=== PATIENT | female | born 1950 | race Caucasian/White ===

== ENCOUNTER 2018-02-10 10:02 | Emergency (ER) | payer MEDICARE, OTHER ==
[2018-02-10] MEDS: LIDOCAINE 2% 5ML JELLY UROJET TOP (11:15)
== END 2018-02-10 12:21 | disposition home or self-care (01) ==
LOC: M ED 10:02
DX: K56.41 Fecal impaction (principal); E07.9 Disorder of thyroid, unspecified; Z98.890 Other specified postprocedural states
CPT/HCPCS: 99284

== ENCOUNTER → 2018-04-22 | Outpatient (REF) | payer MEDICARE, OTHER ==
[2018-04-22 21:43] LABS: INFLUENZA A AMPLIFICATION NEGATIVE (NEGATIVE); INFLUENZA B AMPLIFICATION NEGATIVE (NEGATIVE)
== END ==
LOC: M LAB REF 16:10
DX: R50.9 Fever, unspecified (principal)
CPT/HCPCS: 87502

== ENCOUNTER → 2019-06-28 | Outpatient (CLI) | payer MEDICARE, OTHER ==
[~2019-06-28] MED LIST: LEVO125T4 PO; METHACHOLINE KIT (J7674) INH ONE
--- NOTE | 2019-06-28 09:32 | PFTRPT ---
Height: 65.00 Inches Weight: 126.00 Lbs BSA: 1.63 Diagnosis: R05 DATE OF PROCEDURE: 06/28/2019 ORDERED BY: Dr. Ceron INTERPRETATION: Study of excellent technical quality. Under protocol, methacholine was administered. At a dose of 2.5 mg (13.875 CDUs), a 24% decline in the FEV1 was noted. PC of 1.11 is significant. Flow rates did return to baseline post bronchodilator administration. IMPRESSION: Positive methacholine challenge study. MTDD
== END ==
LOC: M CARPUL 08:51
PROVIDERS: ATTEND Internal Medicine Pulmonary Disease
DX: R05 Cough (principal)
CPT/HCPCS: 94070; 95070; J7674

== ENCOUNTER → 2019-12-02 | Outpatient (CLI) | payer MEDICARE, OTHER ==
[~2019-12-02] MED LIST changes: -METHACHOLINE KIT (J7674) INH ONE
--- NOTE | 2019-12-03 07:24 | REP ---
REASON: Followup. COMPARISON: 05/26/2019 Once again, there are borderline-sized mediastinal lymph nodes. They have a stable appearance. No gross hilar adenopathy has developed. There are no pleural or pericardial effusions. There is no significant change in the appearance of the imaged upper abdomen or imaged osseous structures. There are incidental left renal parapelvic cysts, status quo. Evaluation of the lung caputo shows biapical pleuroparenchymal scarring status quo. The 5 mm sized right middle nodule is stable. There is bronchiectasis with peribronchiolar thickening, and again seen particularly in the left lower lobe and lingula status quo. Lingular air bronchograms are unchanged. There is cylindrical bronchiectasis seen throughout the lung caputo, status quo. No new abnormal nodules, masses, or opacities have developed. IMPRESSION: 1. Stable CT findings as described above. Lung RADS category 2. 2. Consider continued surveillance for the mediastinal lymph nodes if clinically relevant. Electronically Signed by Kirk Nettles DO 12/12/2019 07:43 A
== END ==
LOC: M RAD 14:37
PROVIDERS: ATTEND Internal Medicine Pulmonary Disease
DX: R91.1 Solitary pulmonary nodule (principal); J47.9 Bronchiectasis, uncomplicated

== ENCOUNTER 2020-01-07 10:55 | Emergency (ER) | payer MEDICARE, OTHER | END 2020-01-07 11:30 | disposition home or self-care (01) | LOC: M ED 10:55 | DX: K59.00 Constipation, unspecified (principal); E03.9 Hypothyroidism, unspecified; J45.909 Unspecified asthma, uncomplicated; Z79.899 Other long term (current) drug therapy ==

== ENCOUNTER → 2020-04-04 | Outpatient (CLI) | payer MEDICARE, OTHER | LOC: M LABSMTC 14:08 | PROVIDERS: ATTEND Family Medicine | DX: Z20.828 Contact with and (suspected) exposure to other viral communicable diseases (principal) | CPT/HCPCS: C9803; U0003 ==

== ENCOUNTER → 2020-06-11 | Outpatient (CLI) | payer MEDICARE, OTHER ==
--- NOTE | 2020-06-11 14:10 | REP ---
INDICATION: SOLITARY PULMONARY NODULE COMPARISON: 12/02/2019 TECHNIQUE: Axial noncontrast images from the thoracic inlet to the upper abdomen with coronal and sagittal reformations. This CT examination was performed using the following dose reduction techniques: Automated exposure control, adjustment of mA and/or kv according to the patient's size, and use of iterative reconstruction technique. FINDINGS: 5 mm subpleural nodule along the anterior right middle lobe (image 58) and stable borderline mediastinal adenopathy remain unchanged. No new suspicious nodule or mass lesion is appreciated. Stable chronic biapical scarring, scattered cylindrical bronchiectasis and chronic changes in the lingula with small focal area of chronic collapse with air bronchograms remain unchanged. Subtle new area of reticulonodular changes in the basilar right middle lobe are identified and nonspecific. No effusion. No pneumothorax. Mediastinum demonstrates stable atherosclerotic changes to the thoracic aorta and coronary arteries without cardiomegaly or pericardial effusion. Surrounding musculoskeletal structures are intact. IMPRESSION: 1. Stable 5 mm nodule in the subpleural anterior right middle lobe and stable borderline mediastinal lymph nodes unchanged. Stable chronic changes are also identified as described above. 2. Very subtle small area of reticulonodular changes in the basilar right middle lobe represent a new finding, but are nonspecific and may represent transient process. Consider continued follow-up at 6-9 months to confirm stability. <Electronically signed by Dimas Cowart > 06/11/20 [id number]
== END ==
LOC: M RAD 13:20
PROVIDERS: ATTEND Internal Medicine Pulmonary Disease
DX: R91.8 Other nonspecific abnormal finding of lung field (principal)

== ENCOUNTER → 2021-04-04 | Outpatient (REF) | payer MEDICARE, OTHER ==
[2021-04-04 17:46] LABS: APPEARANCE, URINE CLEAR (CLEAR); BACTERIA, URINE AUTO NEGATIVE (NEGATIVE); BILIRUBIN, URINE AUTO NEGATIVE (NEGATIVE); BLOOD, URINE BLOOD NEGATIVE (NEGATIVE); COLOR, URINE STRAW (YELLOW); GLUCOSE, URINE (UA) AUTO NEGATIVE (NEGATIVE); KETONE, URINE AUTO NEGATIVE (NEGATIVE); LEUKOCYTE ESTERASE, URINE AUTO NEGATIVE (NEGATIVE); NITRITE, URINE AUTO NEGATIVE (NEGATIVE); PROTEIN, URINE AUTO NEGATIVE (NEGATIVE); RBC, URINE AUTO 0 /HPF (0-3); SPECIFIC GRAVITY URINE AUTO 1.008 (1.002-1.035); SQUAMOUS EPITHELIAL CELL UR AU 0 /HPF (0-6); UROBILINOGEN, URINE AUTO 0.2 mg/dL (0.0-2.0); WBC, URINE AUTO 1 /HPF (0-3)
== END ==
LOC: M LAB REF 16:58
PROVIDERS: ATTEND Internal Medicine
DX: Z01.818 Encounter for other preprocedural examination (principal)

== ENCOUNTER → 2021-04-26 | Emergency (ER) | payer MEDICARE, OTHER ==
[~2021-04-26] VITALS: Ht 165.1 cm; Wt 51.8 kg
--- OUTSIDE RECORDS SUMMARY | 2021-04-26 13:22 | CCD | Continuity of Care Document ---
Author Author Varsha DANIELLE MD Organization Unknown Address [address] [place] [address] Phone [phone] Care Team Providers Care Imaging Technician Name Role Phone Zahra Polk A.N.P. AUTM [phone] Problems Description No Information Available Social History Type Date Description Comments Sex Female Tobacco Use Start: Unknown End: Unknown Former Cigarette Smo ker smoked about 1/2 pack for 20 years Smoking Status Reviewed: 02/06/21 Former Cigarette Smoker smoke d about 1/2 pack for 20 years ETOH Use Social Alcohol Use Allergies, Adverse Reactions, Alerts Description No Known Drug Allergies Medications Active Medications SIG Qnty Indications Ordering Provide r Date Colace 100mg Capsules 1 by mouth twice a day 180caps Zahra Polk, A.N.P. 02/16/2018 Synthroid 75mcg Tablets 1 by mouth every day 90tabs Zahra Polk, A.N.P. 03/27/2017 Restasis 0.05% Emulsion 1 drop both eyes twice a day Unknown Advair HFA 115-21mcg/Act Aerosol Inhale Two Puffs By Mouth Twice A Day Unknown 0 Latanoprost 0.005% Solution Instill One Drop Into Both Eyes AT Bedtime as Directed Unkno wn Immunizations Description No Information Available Vital Signs Date Vital Result Comment 02/06/2021 11:08am Height 65 inches 5'5" Weight 118.00 lb Weight 53.525 kg BMI (Body Mass Index) 19.6 kg/m2 BP Systolic 149 mmHg BP Diastolic 60 mmHg Heart Rate 59 /min 07/28/2019 1:02pm Height 65 inches 5'5" Weight 126.00 lb Weight 57.154 kg BMI (Body Mass Index) 21.0 kg/m2 BP Systolic 178 mmHg BP Diastolic 78 mmHg Heart Rate 65 /min Post Void Residual ml 113 Bladder Scanner, I ndication:Incontinence Results Test Acquired Date Facility Test Result H/L Range Note 230 Ua Routine 02/06/2021 [facility] REF TO ADDRESS ON ORDER FOR (315)- - Ua Glucose Negative Ua Protein Negative Ua Nitrite Negative Ua Leuko Small Ua Blood Negative Ua Color Not Entered Ua Ketones Negative Ua Clarity Not Entered Ua Specific Virgie 1.015 1.003-1.030 Ua PH 7.0 5.0-7.5 Ua Bilirubin Negative Ua Urobilinogen 0.2 E.U./dL 0.0-1.0 Procedures Date Code Description Status 02/06/2021 44119 Office/Outpatient Established Mo d MDM 30-39 Min Completed 07/28/2019 [id number] Colonoscopy Completed 07/2015 [id number] Colonoscopy Completed Medical Devices Description No Information Available Encounters Type Date Location Provider Dx Diagnosis Office Visit 02/06/2021 11:15a 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 We reviewed the risks of surgery. She is quite concerned about an inadvertent injury. I explained that this is fairly rare. She is generally anxious about the procedure and potential complications. We discussed blood clots, intraoperative injuries, anesthesia complications, all of which are exceedingly rare particularly in slim and healthy patients. We discussed the use of mesh. We discussed postoperative recovery. I reassured her that this is a quality of life issue and that she should pursue the surgery if her prolapse is bothersome enough that she wishes to go ahead. She is also interested in potentially going ahead with physical therapy. I let her know that I am happy to offer her whatever treatment she decides on. If and when she decides on surgery we will get this scheduled for her. * All * Follow up:* prn- will call to let me know if she'd like surgery or peferral to PFPT Functional Status Functional Condition Comment Date Status Negative for Bipap 07/28/2019 Inactive Negative for C-Pap 07/28/2019 Inactive Negative for Oxygen Therapy 07/28/2019 Inac tive Mental Status Description No Information Available Referrals Description No Information Available
--- OUTSIDE RECORDS SUMMARY | 2021-04-26 13:22 | CCD | Continuity of Care Document ---
Author Author Varsha SOLOMON DO Organization Unknown Address [address] [facility] [address] [place] [address] Phone [phone] Care Team Providers Care Skin Fitter Name Role Phone Zahra Polk AUTM [phone] Natividad Mistry OD AUTM Unavailable Dereck Ceron MD AUTM [phone] Brad Danielle MD AUTM [phone] Problems Description No Information Available Social History Type Date Description Comments Sex Unknown Tobacco Use Start: Unknown End: Unknown Quit Tobacco Use Start: Unknown End: Unknown Patient is a former smoker Exercise Type/Frequency Exercises sporadically Seat Belt/Car Seat always uses seat belt Allergies and adverse reactions Description No Known Drug Allergies Medications Active Medications SIG Qnty Indications Ordering Provide r Date Prednisone 10mg Tablets 3 daily for 3 days then 2 daily for 3 days then 1 daily for 3 days and stop. 15tabs ALEX Figueroa JR 02/18/2021 Colace 100mg Capsules 1 by mouth twice a day 180caps CELINE Wu 02/16/2018 Synthroid 75mcg Tablets 1 by mouth every day 90tabs CELINE Wu 03/27/2017 Calcium 500 +D [id number] Tablets bid CELINE Wu 01/13/2011 Restasis 0.05% Emulsion 1 drop both eyes twice a day Unknown Advair HFA 115-21mcg/Act Aerosol inhale two puffs by mouth twice a day Unknown 0 Proair HFA 108(90Base) mcg/Act Aer osol 2 puffs four times a day as needed Unknown Latanoprost 0.005% Solution 1 drop both eyes every night at bedtime Unknown 00/0 Fish Oil 1000mg Capsules 1 by mouth every day Unknown Medications Administered in Office Medication SIG Qnty Indications Ordering Provider Date Covid-19 vaccine, Unspecified Inj ection Unknown 07/12/2020 Covid-19 vaccine, Unspecified Inj ection Unknown 06/21/2020 Administration Of Flu Vaccine Inj ection Zahra Polk, CELINE 03/24/2019 Immunization Adminstration,1 Vaccine/Tox oid Injection Zahra Polk, CELINE 019 Immunization Each Add'l Vacc/To Injection Zahra Polk, CELINE 016 Immunizations CPT Code Status Date Vaccine Lot # U-Flu Given 03/14/2020 Influenza,Unspecified 22402 Given 03/24/2019 Influenza Vaccin e Quadrivalent Preser/Antibiotic Free Im Use [id number] U-PneuC Given 01/26/2019 Prevnar 13 20575 Given 11/17/2018 Adacel- Tetanus Diphtheria P ertussis 54158 Given 03/25/2017 Influenza Vaccin e Quadrivalent Preser/Antibiotic Free Im Use Q2037 Given 03/21/2016 Fluvirin Virus Vaccine 71047 01 05730 Given 03/21/2016 Pneumovax 23 [id number] Q2037 Given 04/05/2015 Fluvirin Virus Vaccine 78912 01 06850 Given 02/21/2015 Zoster Vaccine Vital Signs Date Vital Result Comment 04/04/2021 10:06am BP Systolic 122 mmHg BP Diastolic 68 mmHg Heart Rate 69 /min Height 55 inches 4'7" Weight 114.00 lb O2 % BldC Oximetry 99 % BMI (Body Mass Index) 26.5 kg/m2 02/18/2021 3:16pm BP Systolic 122 mmHg BP Diastolic 70 mmHg Heart Rate 58 /min Height 55 inches 4'7" Weight 116.00 lb BMI (Body Mass Index) 27.0 kg/m2 Results Test Acquired Date Facility Test Result H/L Range Note Ua Routine 04/04/2021 [facility] [address] [place] [address] [phone] Appearance, Urine CLEAR Normal Clear Color, Urine STRAW Normal Yellow PH,Urine 6.0 units Normal 5.0-9.0 Specific Novelty Urine Auto 1.008 Normal 1.002-1.035 Protein, Urine Auto NEGATIVE mg/dL Normal Negative Glucose, Urine (Ua) Auto NEGATIVE mg/dL Normal Negative Ketone, Urine Auto NEGATIVE mg/dL Normal Negative Urobilinogen, Urine Auto 0.2 mg/dL Normal 0.0-2.0 Bilirubin, Urine Auto NEGATIVE Normal Negative Nitrite, Urine Auto NEGATIVE Normal Negative Leukocyte Esterase, Urine Auto NEGATIVE Normal Negative Blood, Urine Blood NEGATIVE Normal Negative WBC, Urine Auto 1 /HPF Normal 0-3 RBC, Urine Auto 0 /HPF Normal 0-3 Bacteria, Urine Auto NEGATIVE Normal Negative Squamous Epithelial Cell Ur AU 0 /HPF Normal 0-6 Hyaline Cast, Urine Auto 0 /LPF Normal 0-1 Laboratory test finding 04/04/2021 [facility] [address] [place], [place] [id number] [phone] Urine Culture FULL REPORT IN L <SEE NOTE> Normal 1 Complete Blood Count 04/04/2021 [facility] [employer] [facility] [employer] Road Mixer Operator: [place] [address] [phone] WBC 6.6 x10*3/UL 4.1 - 10.9 RBC 3.88 x10*6/UL Low 4.20 - 6.30 Hemoglobin 12.6 g/dL 12.0 - 18.0 Hematocrit 36.5 % Low 37.0 - 51.0 MCV 94.2 fL 80.0 - 97.0 MCH 32.5 pg High 26.0 - 32.0 MCHC 34.5 g/dL 31.0 - 38.0 RDW 12.5 % 11.6 - 13.7 PLT 296 x10*3/UL 140 - 440 MPV 9.1 FL 7.8 - 11.0 Lymph % 22.6 % 10.0 - 58.5 Mid % 6.3 % 1.7 - 9.3 Neut % 71.1 % 37.0 - 92.0 Lymph # 1.5 x10*3/UL 0.6 - 4.1 Mid # 0.4 x10*3/UL 0.1 - 0.6 Neut # 4.7 x10*3/UL 2.0 - 7.8 Comprehensive Chem Profile 04/04/2021 [facility] [address] Mixer Operator: Dr Law [place], [place] [id number] [phone] Glucose 67 mg/dL Low 74 - 99 2 BUN 17 mg/dL 7 - 18 Creatinine 0.6 mg/dL 0.6 - 1.3 Sodium 141 mEq/L 136 - 145 Potassium 4.4 mEq/L 3.5 - 5.1 Chloride 104 mEq/L 98 - 107 Carbon Dioxide 31 mEq/L 21 - 32 Calcium 10.0 mg/dL 8.5 - 10.1 Alk. Phosphatase 49 mg/dL 46 - 116 Total Bilirubin 0.4 mg/dL 0.2 - 1.0 Ast (Sgot) 17 U/L 15 - 37 Alt (SGPT) 34 U/L 12 - 78 Albumin 3.7 g/dL 3.4 - 5.0 Total Protein 7.2 g/dL 6.4 - 8.2 A/G Ratio 1.06 CALC 1.00 - 1.90 GFR >= 60 mL/min >60 GFR >= 60 mL/min >60 3 Complete Blood Count 11/26/2020 [facility] s, pc Road Mixer Operator: Dr [address] [place], [place] [id number] [phone] WBC 6.0 x10*3/UL 4.1 - 10.9 RBC 4.00 x10*6/UL Low 4.20 - 6.30 Hemoglobin 13.0 g/dL 12.0 - 18.0 Hematocrit 38.5 % 37.0 - 51.0 MCV 96.1 fL 80.0 - 97.0 MCH 32.5 pg High 26.0 - 32.0 MCHC 33.8 g/dL 31.0 - 38.0 RDW 12.6 % 11.6 - 13.7 PLT 258 x10*3/UL 140 - 440 MPV 9.6 FL 7.8 - 11.0 Lymph % 23.4 % 10.0 - 58.5 Mid % 6.8 % 1.7 - 9.3 Neut % 69.8 % 37.0 - 92.0 Lymph # 1.4 x10*3/UL 0.6 - 4.1 Mid # 0.4 x10*3/UL 0.1 - 0.6 Neut # 4.2 x10*3/UL 2.0 - 7.8 Comprehensive Chem Profile 11/26/2020 [facility], Road Mixer Operator: [place] [address] [phone] Glucose 96 mg/dL 74 - 99 4 BUN 13 mg/dL 7 - 18 Creatinine 0.7 mg/dL 0.6 - 1.3 Sodium 140 mEq/L 136 - 145 Potassium 4.1 mEq/L 3.5 - 5.1 Chloride 103 mEq/L 98 - 107 Carbon Dioxide 30 mEq/L 21 - 32 Calcium 9.4 mg/dL 8.5 - 10.1 Alk. Phosphatase 51 mg/dL 46 - 116 Total Bilirubin 0.8 mg/dL 0.2 - 1.0 Ast (Sgot) 24 U/L 15 - 37 Alt (SGPT) 38 U/L 12 - 78 Albumin 4.0 g/dL 3.4 - 5.0 Total Protein 7.3 g/dL 6.4 - 8.2 A/G Ratio 1.21 CALC 1.00 - 1.90 GFR >= 60 mL/min >60 GFR >= 60 mL/min >60 5 Lipid Profile 11/26/2020 [facility] , Road Mixer Operator: Dr Thanh [place] [id number] [phone] Cholesterol 227 mg/dL High 131 - 200 Triglycerides 52 mg/dL 30 - 150 HDL Cholesterol 121 mg/dL High 35 - 60 LDL (Calculated) 96 CALC 50 - 159 Laboratory test finding 11/26/2020 [facility] [employer], Road Mixer Operator: [place] [address] [phone] Thyroid Stimulating Hormone 0.52 uIU/mL 0.3 6 - 3.74 1 FULL REPORT IN LAB NOTES (eC W and Medent). NO GROWTH 2 100-125 mg/dL PRE-DIABET ES/FASTING >126 mg/dL DIABETES/FASTING 3 CHRONIC KIDNEY DISEASE STAGI NG PER NKF STAGE I & II GFR >= 60 NORMAL TO MILDLY DECREASED STAGE III GFR 30-59 MODERATELY DECREASED STAGE IV GFR 15-29 SEVERELY DECREASED STAGE V GFR <15 VERY LITTLE GFR LEFT ESRD GFR <15 ON ASSESSMENT DIRECTOR 4 100-125 mg/dL PRE-DIABET ES/FASTING >126 mg/dL DIABETES/FASTING 5 CHRONIC KIDNEY DISEASE STAGI NG PER NKF STAGE I & II GFR >= 60 NORMAL TO MILDLY DECREASED STAGE III GFR 30-59 MODERATELY DECREASED STAGE IV GFR 15-29 SEVERELY DECREASED STAGE V GFR <15 VERY LITTLE GFR LEFT ESRD GFR <15 ON ASSESSMENT DIRECTOR Procedures Date Code Description Status 02/18/2021 07589 Office/Outpatient Established SF MDM 10-19 Min Completed 11/26/2020 26442 Office/Outpatient Established Mo d MDM 30-39 Min Completed 05/29/2020 [id number] Mammogram Completed 05/04/2019 [id number] Mammogram Completed 05/03/2018 [id number] Bone Mineral Density Test Comple claudio 05/03/2018 [id number] Mammogram Completed 04/13/2017 [id number] Mammogram Completed 04/10/2016 [id number] Mammogram Completed 07/09/2015 [id number] Colonoscopy Completed 03/07/2015 [id number] Mammogram Completed 03/03/2014 [id number] Mammogram Completed 02/28/2013 [id number] Mammogram Completed 03/04/2012 [id number] Mammogram Completed 02/27/2012 [id number] Mammogram Completed 02/25/2011 [id number] Mammogram Completed 02/25/2011 [id number] Bone Mineral Density Test Comple claudio 02/18/2010 [id number] Mammogram Completed 02/16/2009 [id number] Mammogram Completed 01/12/2006 [id number] Bone Mineral Density Test Comple claudio 08/2004 [id number] Colonoscopy Completed Medical Devices Description No Information Available Encounters Type Date Location Provider Dx Diagnosis Office Visit 02/18/2021 3:20p [facility] R21 Rash and other nonspecific s kin eruption Office Visit 11/26/2020 10:20a [facility] Pol[facility], CELINE E03.9 Hypothyroidism, unspecified I10 Essential (primary) hyperten darin E78.00 Pure hypercholesterolemia, u nspecified Z13.89 Encounter for screening for other disorder Assessments Date Code Description Provider 04/04/2021 Z01.810 Encounter for preprocedural card iovascular examination Boni Solomon, 04/04/2021 N81.4 Uterovaginal prolapse, unspecifi ed Boni Solomon, 04/04/2021 E03.9 Hypothyroidism, unspecified Chri bebe Solomon DO 04/04/2021 J45.30 Mild persistent asthma, uncompli cated Boni Solomon, DO 02/18/2021 R21 Rash and other nonspecific skin eruption Brendan Yeboah JR PA 11/26/2020 E03.9 Hypothyroidism, unspecified CELINE Jacques 11/26/2020 I10 Essential (primary) hypertension CELINE Wu 11/26/2020 E78.00 Pure hypercholesterolemia, unspe cified CELINE Wu 11/26/2020 Z13.89 Encounter for screening for othe r disorder CELINE Wu Plan of Treatment Future Appointment(s):* 05/28/2021 10:00 am - CELINE Wu at [facility] 04/04/2021 - Boni Solomon, * Z01.810 Encounter for preprocedural cardiovascular examination * N81.4 Uterovaginal prolapse, unspecified * E03.9 Hypothyroidism, unspecified* Comments:* Well controlled on current levoTH dose. * J45.30 Mild persistent asthma, uncomplicated* Comments:* Well controlled with current inhaler regimen with very infrequent rescue inhaler use. Functional Status Description No Information Available Mental Status Description No Information Available Referrals Description No Information Available
--- OUTSIDE RECORDS SUMMARY | 2021-04-26 13:22 | CCD | Continuity of Care Document ---
Author Author Varsha YEBOAH Organization Unknown Address [address] [facility] [address] [place] [address] Phone [phone] Care Team Providers Care Winch Runner Name Role Phone Zahra Polk AUTM [phone] Natividad Mistry OD AUTM Unavailable Dereck Ceron MD AUTM [phone] Brad Danielle MD AUTM [phone] Problems Description No Information Available Social History Type Date Description Comments Sex Unknown Tobacco Use Start: Unknown End: Unknown Quit Tobacco Use Start: Unknown End: Unknown Patient is a former smoker Exercise Type/Frequency Exercises sporadically Seat Belt/Car Seat always uses seat belt Allergies, Adverse Reactions, Alerts Description No Known [...] 90tabs CELINE Wu 03/27/2017 Calcium 500 +D [id number] Tablets bid CELINE Wu 01/13/2011 Restasis 0.05% [...] CELINE 019 Immunization Each Add'l Vacc/To Injection CELINE Wu 016 Immunizations CPT Code Status Date Vaccine Lot # U-Flu Given 03/14/2020 Influenza,Unspecified 19119 Given 03/24/2019 Influenza Vaccin e Quadrivalent Preser/Antibiotic Free Im Use [id number] U-PneuC Given 01/26/2019 Prevnar 13 00214 Given 11/17/2018 Adacel- Tetanus Diphtheria P ertussis 12605 Given 03/25/2017 Influenza Vaccin e Quadrivalent Preser/Antibiotic Free Im Use Q2037 Given 03/21/2016 Fluvirin Virus Vaccine 07854 01 11736 Given 03/21/2016 Pneumovax 23 [id number] Q2037 Given 04/05/2015 Fluvirin Virus Vaccine 78061 01 81509 Given 02/21/2015 Zoster Vaccine Vital Signs Date Vital Result Comment 02/18/2021 3:16pm BP Systolic 122 mmHg BP Diastolic 70 mmHg Heart Rate 58 /min Height 55 inches 4'7" Weight 116.00 lb BMI (Body Mass Index) 27.0 kg/m2 11/26/2020 10:04am BP Systolic 120 mmHg BP Diastolic 50 mmHg Heart Rate 58 /min Height 55 inches 4'7" Weight 117.25 lb O2 % BldC Oximetry 98 % RM Air BMI (Body Mass Index) 27.2 kg/m2 Results Test Acquired Date Facility Test Result H/L Range Note Complete Blood Count 11/26/2020 [facility] [employer] [facility] alexia jarrell Production Line Welder: Dr Thanh Patterson [place], [place] [address] [phone] WBC 6.0 x10*3/UL 4.1 - 10.9 RBC [...] 2.0 - 7.8 Comprehensive Chem Profile 11/26/2020 [facility], Production Line Welder: [place] [address] [phone] Glucose 96 mg/dL 74 - 99 1 BUN 13 mg/dL 7 - 18 Creatinine [...] mL/min >60 GFR >= 60 mL/min >60 2 Lipid Profile 11/26/2020 [facility] , Production Line Welder: [place] [address] [phone] Cholesterol 227 mg/dL High 131 - 200 Triglycerides 52 mg/dL 30 - 150 HDL Cholesterol 121 mg/dL High 35 - 60 LDL (Calculated) 96 CALC 50 - 159 Laboratory test finding 11/26/2020 [facility] [employer] Line Welder: [place] [address] [phone] Thyroid Stimulating Hormone 0.52 uIU/mL 0.3 6 - 3.74 1 100-125 mg/dL PRE-DIABET ES/FASTING >126 mg/dL DIABETES/FASTING 2 CHRONIC KIDNEY DISEASE STAGI NG PER NKF STAGE I & II GFR >= 60 NORMAL TO MILDLY DECREASED STAGE III GFR 30-59 MODERATELY DECREASED STAGE IV GFR 15-29 SEVERELY DECREASED STAGE V GFR <15 VERY LITTLE GFR LEFT ESRD GFR <15 ON HEALTH INFORMATION SYSTEMS TECHNICIAN Procedures Date Code Description Status 02/18/2021 58182 Office/Outpatient Established SF MDM 10-19 Min Completed 11/26/2020 07739 Office/Outpatient Established Mo d MDM 30-39 Min Completed 05/29/2020 [id number] Mammogram Completed 05/04/2019 [id number] Mammogram Completed 05/03/2018 [id number] Bone Mineral Density Test Comple claudio 05/03/2018 [id number] Mammogram Completed 04/13/2017 [id number] Mammogram Completed 04/10/2016 [id number] Mammogram Completed 07/09/2015 [id number] Colonoscopy Completed 03/07/2015 [id number] Mammogram Completed 03/03/2014 [id number] Mammogram Completed 02/28/2013 [id number] Mammogram Completed 03/04/2012 [id number] Mammogram Completed 02/27/2012 [id number] Mammogram Completed 02/25/2011 [id number] Mammogram Completed 02/25/2011 [id number] Bone Mineral Density Test Comple claudio 02/18/2010 [id number] Mammogram Completed 02/16/2009 [id number] Mammogram Completed 01/12/2006 [id number] Bone Mineral Density Test Comple claudio 08/2004 [id number] Colonoscopy Completed Medical Devices Description No Information Available Encounters Type Date Location Provider Dx Diagnosis Office Visit 02/18/2021 3:[facility]p [facility] R21 Rash and other nonspecific s kin eruption Office Visit 11/26/2020 10:20a [facility] CELINE Wu E03.9 Hypothyroidism, unspecified I10 Essential (primary) hyperten darin E78.00 Pure hypercholesterolemia, u nspecified Z13.89 Encounter for screening for other disorder Assessments Date Code Description Provider 02/18/2021 R21 Rash and other nonspecific skin eruption ALEX Figueroa JR 11/26/2020 E03.9 Hypothyroidism, unspecified CELINE Jacques 11/26/2020 I10 Essential (primary) hypertension CELINE Wu 11/26/2020 E78.00 Pure hypercholesterolemia, unspe cified CELINE Wu 11/26/2020 Z13.89 Encounter for screening for othe r disorder CELINE Wu Plan of Treatment Future Appointment(s):* 05/28/2021 10:00 am - CELINE Wu at [facility] 02/18/2021 - ALEX Figueroa JR* R21 Rash and other nonspecific skin eruption * All * New Medication:* Prednisone 10 mg - 3 daily for 3 days then 2 daily for 3 days then 1 daily for 3 days and stop. Functional Status Description No Information Available Mental Status Description No Information Available Referrals Description No Information Available
--- OUTSIDE RECORDS SUMMARY | 2021-04-26 13:22 | CCD | Continuity of Care Document ---
Author Author Varsha SOLOMON DO Organization Unknown Address [address] [facility] [address] [place] [address] Phone [phone] Care Team Providers Care Cellar Pumper Name Role Phone Zahra Polk AUTM [phone] Natividad Mistry OD AUTM Unavailable Dereck Ceron MD AUTM [phone] Brad Danielle MD AUTM [phone] Problems Description No Information Available Social History [...] 90tabs CELINE Wu 03/27/2017 Calcium 500 +D [id number] Tablets bid CELINE Wu 01/13/2011 Restasis 0.05% [...] Vaccine Lot # U-Flu Given 03/14/2020 Influenza,Unspecified 11584 Given 03/24/2019 Influenza Vaccin e Quadrivalent Preser/Antibiotic Free Im Use [id number] U-PneuC Given 01/26/2019 Prevnar 13 03514 Given 11/17/2018 Adacel- Tetanus Diphtheria P ertussis 59094 Given 03/25/2017 Influenza Vaccin e Quadrivalent Preser/Antibiotic Free Im Use [id number] Given 03/21/2016 Fluvirin Virus Vaccine 72280 01 76563 Given 03/21/2016 Pneumovax 23 [id number] Q2037 Given 04/05/2015 Fluvirin Virus Vaccine 54989 01 90032 Given 02/21/2015 Zoster Vaccine Vital Signs Date [...] Result H/L Range Note Ua Routine 04/04/2021 [facility] nter [address] [place] [address] [phone] Appearance, Urine CLEAR Normal Clear Color, Urine STRAW Normal Yellow PH,Urine 6.0 units Normal 5.0-9.0 Specific [place] Urine Auto 1.008 Normal 1.002-1.035 Protein, Urine [...] /LPF Normal 0-1 Laboratory test finding 04/04/2021 [facility] [address] [place], [place] [id number] [phone] Urine Culture FULL REPORT IN L <SEE NOTE> Normal 1 Complete Blood Count 04/04/2021 [facility] Sports Commentator: [place] [address] [phone] WBC 6.6 x10*3/UL 4.1 - 10.9 RBC [...] 2.0 - 7.8 Comprehensive Chem Profile 04/04/2021 [facility] Sports Commentator: Dr Law [place], [place] [id number] [phone] Glucose 67 mg/dL Low 74 - 99 [...] mL/min >60 3 Complete Blood Count 11/26/2020 [facility] Sports Commentator: Dr Law [place], [place] [id number] [phone] WBC 6.0 x10*3/UL 4.1 - 10.9 RBC [...] 2.0 - 7.8 Comprehensive Chem Profile 11/26/2020 [facility], Sports Commentator: [place] [address] [phone] Glucose 96 mg/dL 74 - 99 4 [...] 60 mL/min >60 5 Lipid Profile 11/26/2020 [facility] , Sports Commentator: Dr Thanh Solomon [place] [address] [phone] Cholesterol 227 mg/dL High 131 - 200 Triglycerides 52 mg/dL 30 - 150 HDL Cholesterol 121 mg/dL High 35 - 60 LDL (Calculated) 96 CALC 50 - 159 Laboratory test finding 11/26/2020 [facility], Sports Commentator: Dr [place]h [place] [address] [phone] Thyroid Stimulating Hormone 0.52 uIU/mL 0.3 6 [...] LITTLE GFR LEFT ESRD GFR <15 ON RELIGIOUS ASSISTANT 4 100-125 mg/dL PRE-DIABET ES/FASTING >126 mg/dL DIABETES/FASTING 5 CHRONIC KIDNEY DISEASE STAGI NG PER NKF STAGE I & II GFR >= 60 NORMAL TO MILDLY DECREASED STAGE III GFR 30-59 MODERATELY DECREASED STAGE IV GFR 15-29 SEVERELY DECREASED STAGE V GFR <15 VERY LITTLE GFR LEFT ESRD GFR <15 ON RELIGIOUS ASSISTANT Procedures Date Code Description Status 02/18/2021 46351 Office/Outpatient Established SF MDM 10-19 Min Completed 11/26/2020 49790 Office/Outpatient Established Mo d MDM 30-39 Min Completed 05/29/2020 [id number] Mammogram Completed 05/04/2019 [id number] Mammogram Completed 05/03/2018 [id number] Bone Mineral Density Test Comple claudio 05/03/2018 [id number] Mammogram Completed 04/13/2017 [id number] Mammogram Completed 04/10/2016 [id number] Mammogram Completed 07/09/2015 [id number] Colonoscopy Completed 03/07/2015 [id number] Mammogram Completed 03/03/2014 [id number] Mammogram Completed 02/28/2013 [id number] Mammogram Completed 03/04/2012 [id number] Mammogram Completed 02/27/2012 [id number] Mammogram Completed 02/25/2011 [id number] Mammogram Completed 02/25/2011 [id number] Bone Mineral Density Test Comple claudio 02/18/2010 [id number] Mammogram Completed 02/16/2009 [id number] Mammogram Completed 01/12/2006 [id number] Bone Mineral Density Test Comple claudio 08/2004 [id number] Colonoscopy Completed Medical Devices Description No Information Available Encounters Type Date Location Provider Dx Diagnosis Office Visit 02/18/2021 3[facility] R21 Rash and other nonspecific s kin eruption Office Visit 11/26/2020 10:20a [facility], CELINE E03.9 Hypothyroidism, unspecified [...] 05/28/2021 10:00 am - CELINE Wu at [facility] 04/04/2021 - Boni Solomon, * [...]
--- OUTSIDE RECORDS SUMMARY | 2021-04-26 13:22 | CCD | Continuity of Care Document ---
Author Author Covid-19 Testing, [facility] Unknown Address [address] [facility], [address] [place] [address] Phone [phone] Care Team Providers Care Manager Appointment Name Role Phone Brad Danielle M.D. AUTM [phone] No PCP AUTM Unavailable Problems Description No Information Available Social History Type Date Description Comments Sex Unknown Allergies and adverse reactions Description No Information Available Medications Description No Information Available Immunizations Description No Information Available Vital Signs Description No Information Available Results Description No Information Available Procedures Date Code Description Status 04/05/2021 54725 Office/Outpatient Established Mi nimal Problem(S) Completed Medical Devices Description No Information Available Encounters Type Date Location Provider Dx Diagnosis Office Visit 04/05/2021 11:20a [facility] Covid-19 Testing Z20.822 Contact with and (suspected) exposure to Covid-19 Assessments Date Code Description Provider 04/05/2021 Z20.822 Contact with and (suspected) exp osure to Covid-19 Dennis Vale MD 04/05/2021 Z20.822 Contact with and (suspected) exp osure to Covid-19 Covid-19 Testing Plan of Treatment No Information Available Functional Status Description No Information Available Mental Status Description No Information Available Referrals Description No Information Available
--- OUTSIDE RECORDS SUMMARY | 2021-04-26 13:22 | CCD | Continuity of Care Document ---
Author Author Varsha SOLOMON DO Organization Unknown Address [address] [facility] [address] [place] [address] Phone [phone] Care Team Providers Care All Terrain Vehicle Technician Name Role Phone Zahra Polk AUTM [phone] Natividad Mistry OD AUTM Unavailable Dereck Ceron MD AUTM [phone] Brad Danielle MD AUTM [phone] Problems Description No Information Available Social History [...] 90tabs CELINE Wu 03/27/2017 Calcium 500 +D [id number] Tablets bid CELINE Wu 01/13/2011 Restasis 0.05% [...] Vaccine Lot # U-Flu Given 03/14/2020 Influenza,Unspecified 60417 Given 03/24/2019 Influenza Vaccin e Quadrivalent Preser/Antibiotic Free Im Use [id number] U-PneuC Given 01/26/2019 Prevnar 13 54518 Given 11/17/2018 Adacel- Tetanus Diphtheria P ertussis 75716 Given 03/25/2017 Influenza Vaccin e Quadrivalent Preser/Antibiotic Free Im Use Q2037 Given 03/21/2016 Fluvirin Virus Vaccine 00913 01 09756 Given 03/21/2016 Pneumovax 23 [id number] Q2037 Given 04/05/2015 Fluvirin Virus Vaccine 56847 01 58096 Given 02/21/2015 Zoster Vaccine Vital Signs Date [...] Range Note Complete Blood Count 11/26/2020 [facility] Rural Sociologist: Dr Thanh Solomon [place] [address] [phone] WBC 6.0 x10*3/UL 4.1 - 10.9 RBC [...] 2.0 - 7.8 Comprehensive Chem Profile 11/26/2020 [facility], Rural Sociologist: [place] [address] [phone] Glucose 96 mg/dL 74 - 99 1 [...] 60 mL/min >60 2 Lipid Profile 11/26/2020 [facility] , Rural Sociologist: [place]h [place] [address] [phone] Cholesterol 227 mg/dL High 131 - 200 Triglycerides 52 mg/dL 30 - 150 HDL Cholesterol 121 mg/dL High 35 - 60 LDL (Calculated) 96 CALC 50 - 159 Laboratory test finding 11/26/2020 [facility] Rural Sociologist: [place] [address] [phone] Thyroid Stimulating Hormone 0.52 uIU/mL 0.3 6 - 3.74 1 100-125 mg/dL PRE-DIABET ES/FASTING >126 mg/dL DIABETES/FASTING 2 CHRONIC KIDNEY DISEASE STAGI NG PER NKF STAGE I & II GFR >= 60 NORMAL TO MILDLY DECREASED STAGE III GFR 30-59 MODERATELY DECREASED STAGE IV GFR 15-29 SEVERELY DECREASED STAGE V GFR <15 VERY LITTLE GFR LEFT ESRD GFR <[address] ABSTRACTOR Procedures Date Code Description Status 02/18/2021 39362 Office/Outpatient Established SF MDM 10-19 Min Completed 11/26/2020 27604 Office/Outpatient Established Mo d MDM 30-39 Min Completed 05/29/2020 [id number] Mammogram Completed 05/04/2019 [id number] Mammogram Completed 05/03/2018 [id number] Bone Mineral Density Test [facility] 05/03/2018 [id number] Mammogram Completed 04/13/2017 [id number] Mammogram Completed 04/10/2016 [id number] Mammogram Completed 07/09/2015 [id number] Colonoscopy Completed 03/07/2015 [id number] Mammogram Completed 03/03/2014 [id number] Mammogram Completed 02/28/2013 [id number] Mammogram Completed 03/04/2012 [id number] Mammogram Completed 02/27/2012 [id number] Mammogram Completed 02/25/2011 [id number] Mammogram Completed 02/25/2011 [id number] Bone Mineral Density Test Comple claudio 02/18/2010 [id number] Mammogram Completed 02/16/2009 [id number] Mammogram Completed 01/12/2006 627148864 Bone Mineral Density Test [facility] 08/2004 [id number] Colonoscopy Completed Medical Devices Description No Information Available Encounters Type Date Location Provider Dx Diagnosis Office Visit 02/18/2021 [facility] [place] R21 Rash and other nonspecific s kin eruption Office Visit 11/26/2020 10:20a [facility] J. [place], ANP E03.9 Hypothyroidism, unspecified I10 Essential (primary) hyperten darin E78.00 Pure hypercholesterolemia, u nspecified Z13.89 Encounter for screening for other disorder Assessments Date Code Description Provider 04/04/2021 Z01.810 Encounter for preprocedural card iovascular examination Boni Solomon, DO 04/04/2021 N81.4 Uterovaginal prolapse, unspecifi ed Boni Solomon, DO 04/04/2021 E03.9 Hypothyroidism, unspecified Chri bebe Solomon, DO 04/04/2021 J45.30 Mild persistent asthma, uncompli cated Boni Solomon, DO 02/18/2021 R21 Rash and other nonspecific skin eruption ALEX Figueroa JR 11/26/2020 E03.9 Hypothyroidism, unspecified Ruben Polk, CELINE 11/26/2020 I10 Essential (primary) hypertension Zahra Polk, CELINE 11/26/2020 E78.00 Pure hypercholesterolemia, unspe cified Zahra Polk, CELINE 11/26/2020 Z13.89 Encounter for screening for othe r disorder CELINE Wu Plan of Treatment Future Appointment(s):* 05/28/2021 10:00 am - CELINE Wu at [facility] 04/04/2021 - Boni Solomon, DO* Z01.810 Encounter for preprocedural cardiovascular examination * N81.4 Uterovaginal prolapse, unspecified * E03.9 Hypothyroidism, unspecified * J45.30 Mild persistent asthma, uncomplicated Functional Status Description No Information Available Mental Status Description No Information Available Referrals Description No Information Available
--- OUTSIDE RECORDS SUMMARY | 2021-04-26 13:22 | CCD | Continuity of Care Document ---
Author Author Varsha DANIELLE MD Organization Unknown Address [address] [place] [address] Phone [phone] Care Team Providers Care Gas Appliance Repairer Name Role Phone Zahra Polk A.N.P. AUTM [phone] Problems Description No Information Available Social History [...] Negative Ua Clarity Not Entered Ua Specific [place] 1.015 1.003-1.030 Ua PH 7.0 5.0-7.5 Ua Bilirubin Negative Ua Urobilinogen 0.2 E.U./dL 0.0-1.0 Procedures Date Code Description Status 02/06/2021 09340 Office/Outpatient Established Mo d MDM 30-39 Min Completed 07/28/2019 [id number] Colonoscopy Completed 07/2015 [id number] Colonoscopy Completed Medical Devices Description No Information Available Encounters Type Date Location Provider Dx Diagnosis Office Visit 02/06/2021 11:15a [facility] Brad Danielle MD N99.3 [...]
--- OUTSIDE RECORDS SUMMARY | 2021-04-26 13:22 | CCD | Continuity of Care Document ---
Author Author Varsha DANIELLE MD Organization Unknown Address [address] [place] [address] Phone [phone] Care Team Providers Care Moss Picker Name Role Phone Zahra Polk A.N.P. AUTM [phone] Problems Description No Information Available Social History [...] Negative Ua Clarity Not Entered Ua Specific [place] 1.015 1.003-1.030 Ua PH 7.0 5.0-7.5 Ua Bilirubin Negative Ua Urobilinogen 0.2 E.U./dL 0.0-1.0 Procedures Date Code Description Status 02/06/2021 64242 Office/Outpatient Established Mo d MDM 30-39 Min Completed 07/28/2019 [id number] Colonoscopy Completed 07/2015 [id number] Colonoscopy Completed Medical Devices Description No Information Available Encounters Type Date Location Provider Dx Diagnosis Office Visit 02/06/2021 11:15a [facility] Brad Danielle MD N99.3 [...]
--- OUTSIDE RECORDS SUMMARY | 2021-04-26 13:22 | CCD | Continuity of Care Document ---
Author Organization Unknown Address Unknown Phone Unavailable Care Team Providers Care Die Assembler Name Role Phone Zahra Polk A.N.P. AUTM [phone] Problems Description No Information Available Social History Type Date Description Comments Sex Female Tobacco Use Start: Unknown End: Unknown Former Cigarette Smo ker smoked about 1/2 pack for 20 years Smoking Status Reviewed: 02/06/21 Former Cigarette Smoker smoke d about 1/2 pack for 20 years ETOH Use Social Alcohol Use Allergies and adverse reactions Description No Known [...] Date Facility Test Result H/L Range Note Laboratory test finding 04/04/2021 Outside Facility (315)- - Urine Culture <pending> 230 Ua Routine 02/06/2021 [facility] Inhouse Lab REF TO DR ADDRESS ON ORDER FOR (315)- - Ua Glucose Negative Ua Protein Negative Ua Nitrite Negative Ua Leuko Small Ua Blood Negative Ua Color Not Entered Ua Ketones Negative Ua Clarity Not Entered Ua Specific [place] 1.015 1.003-1.030 Ua PH 7.0 5.0-7.5 Ua Bilirubin Negative Ua Urobilinogen 0.2 E.U./dL 0.0-1.0 Procedures Date Code Description Status 02/06/2021 88571 Office/Outpatient Established Mo d MDM 30-39 Min Completed 07/28/2019 [id number] Colonoscopy Completed 07/2015 [id number] Colonoscopy Completed Medical Devices Description No Information Available Encounters Type Date Location Provider Dx Diagnosis Office Visit 02/06/2021 11:15a [facility] Brad Danielle MD 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 Assessments Date Code Description Provider 02/06/2021 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 Valid & Billable Code Covered @ 100% with No Copay & No Deductible No Prior Authorization Required REF# [id number] 03/19/21 [facility] [address] [place] [phone]
--- OUTSIDE RECORDS SUMMARY | 2021-04-26 13:23 | CCD | Continuity of Care Document ---
Author Author Varsha DANIELLE MD Organization Unknown Address [address] [place] [address] Phone [phone] Care Team Providers Care Glassine Machine Tender Name Role Phone Zahra Polk A.N.P. AUTM [phone] Problems Description No Information Available Social History [...] Negative Ua Clarity Not Entered Ua Specific [place] 1.015 1.003-1.030 Ua PH 7.0 5.0-7.5 Ua Bilirubin Negative Ua Urobilinogen 0.2 E.U./dL 0.0-1.0 Procedures Date Code Description Status 02/06/2021 38760 Office/Outpatient Established Mo d MDM 30-39 Min Completed 07/28/2019 [id number] Colonoscopy Completed 07/2015 [id number] Colonoscopy Completed Medical Devices Description No Information Available Encounters Type Date Location Provider Dx Diagnosis Office Visit 02/06/2021 11:15a [facility] St/ [facility] Brad Danielle MD [...]
--- OUTSIDE RECORDS SUMMARY | 2021-04-26 13:23 | CCD | Continuity of Care Document ---
Author Author Varsha DANIELLE MD Organization Unknown Address [address] [place] [address] Phone [phone] Care Team Providers Care Clean Energy Policy Analyst Name Role Phone Zahra Polk A.N.P. AUTM [phone] Problems Description No Information Available Social History [...] Negative Ua Clarity Not Entered Ua Specific [place] 1.015 1.003-1.030 Ua PH 7.0 5.0-7.5 Ua Bilirubin Negative Ua Urobilinogen 0.2 E.U./dL 0.0-1.0 Procedures Date Code Description Status 02/06/2021 64499 Office/Outpatient Established Mo d MDM 30-39 Min Completed 07/28/2019 [id number] Colonoscopy Completed 07/2015 [id number] Colonoscopy Completed Medical Devices Description No Information Available Encounters Type Date Location Provider Dx Diagnosis Office Visit 02/06/2021 11:15a [facility] St/ [facility] Urology Brad Danielle MD [...]
--- OUTSIDE RECORDS SUMMARY | 2021-04-26 13:23 | CCD ---
Continuity of Care Document (CCD) Created on: 02/06/2021 Varsha Hale External Reference #: [id number] : [id number] Sex: Female Author Author Varsha DANIELLE MD Organization Unknown Address [address] [place] [address] Phone [phone] Care Team Providers Care Np Name Role Phone Zahra Polk A.N.P. AUTM [phone] Problems Description No Information Available Social History [...] Negative Ua Clarity Not Entered Ua Specific [place] 1.015 1.003-1.030 Ua PH 7.0 5.0-7.5 Ua Bilirubin Negative Ua Urobilinogen 0.2 E.U./dL 0.0-1.0 Procedures Date Code Description Status 02/06/2021 45933 Office/Outpatient Established Mo d MDM 30-39 Min Completed 07/28/2019 [id number] Colonoscopy Completed 07/2015 [id number] Colonoscopy Completed Medical Devices Description No Information Available Encounters Type Date Location Provider Dx Diagnosis Office Visit 02/06/2021 11:15a [facility] Brad Danielle MD N99.3 [...]
--- OUTSIDE RECORDS SUMMARY | 2021-04-26 13:23 | CCD ---
Author Author [facility] Organization [facility] Address Unknown Phone Unavailable Care Team Providers Care College Football Coach Name Role Phone Claudia GANDHI MD Unavailable Unavailable Claudia GANDHI MD Unavailable Unavailable Claudia GANDHI MD Unavailable Unavailable Claudia GANDHI MD Unavailable Unavailable Claudia GANDHI MD Unavailable Unavailable Claudia GANDHI MD Unavailable Unavailable Claudia GANDHI MD Unavailable Unavailable Claudia GANDHI MD Unavailable Unavailable Claudia GANDHI MD Unavailable Unavailable Claudia GANDHI MD Unavailable Unavailable Claudia GANDHI MD Unavailable Unavailable Claudia GANDHI MD Unavailable Unavailable Claudia GANDHI MD Unavailable Unavailable Claudia GANDHI MD Unavailable Unavailable Claudia GANDHI MD Unavailable Unavailable Claudia GANDHI MD Unavailable Unavailable Claudia GANDHI MD Unavailable Unavailable Claudia GANDHI MD Unavailable Unavailable Claudia GANDHI MD Unavailable Unavailable Claudia GANDHI MD Unavailable Unavailable Claudia GANDHI MD Unavailable Unavailable Claudia GANDHI MD Unavailable Unavailable Claudia GANDHI MD Unavailable Unavailable Claudia GANDHI MD Unavailable Unavailable Jonathon Danielle MD Unavailable Unavailable Jonathon Danielle MD Unavailable Unavailable Jonathon Danielle MD Unavailable Unavailable Jonathon Danielle MD Unavailable Unavailable Jonathon Danielle MD Unavailable Unavailable Jonathon Danielle MD Unavailable Unavailable Jonathon Danielle MD Unavailable Unavailable Jonathon Danielle MD Unavailable Unavailable Jonathon Danielle MD Unavailable Unavailable Narins, Jonathon MD Unavailable Unavailable Narins, Puxico MD Unavailable Unavailable Narins, Puxico MD Unavailable Unavailable Narins, Jonathon MD Unavailable Unavailable Narins, Jonathon MD Unavailable Unavailable Narins, Puxico MD Unavailable Unavailable Narins, Jonathon MD Unavailable Unavailable Narins, Jonathon MD Unavailable Unavailable Narins, Puxico MD Unavailable Unavailable Narins, Puxico MD Unavailable Unavailable Narins, Puxico MD Unavailable Unavailable Narins, Puxico MD Unavailable Unavailable Narins, Puxico MD Unavailable Unavailable Narins, Jonathon MD Unavailable Unavailable Narins, Jonathon MD Unavailable Unavailable Narins, Puxico MD Unavailable Unavailable Narins, Jonathon MD Unavailable Unavailable Narins, Jonathon MD Unavailable Unavailable Narins, Jonathon MD Unavailable Unavailable Narins, Puxico MD Unavailable Unavailable Narins, Puxico MD Unavailable Unavailable Narins, Puxico MD Unavailable Unavailable Narins, Jonathon MD Unavailable Unavailable Narins, Puxico MD Unavailable Unavailable Narins, Puxico MD Unavailable Unavailable Narins, Jonathon MD Unavailable Unavailable Narins, Jonathon MD Unavailable Unavailable Narins, Puxico MD Unavailable Unavailable Narins, Puxico MD Unavailable Unavailable Narins, Puxico MD Unavailable Unavailable Narins, Puxico MD Unavailable Unavailable Narins, Jonathon MD Unavailable Unavailable Narins, Jonathon MD Unavailable Unavailable Narins, Jonathon MD Unavailable Unavailable Narins, Puxico MD Unavailable Unavailable Narins, Puxico MD Unavailable Unavailable Narins, Jonathon MD Unavailable Unavailable Narins, Puxico MD Unavailable Unavailable Narins, Jonathon MD Unavailable Unavailable Narins, Puxico MD Unavailable Unavailable Narins, Puxico MD Unavailable Unavailable Narins, Jonathon MD Unavailable Unavailable PICKERAL JR, J SOY PA-C Unavailable Unavailable PICKERAL JR, J SOY PA-C Unavailable Unavailable PICKERAL JR, J SOY PA-C Unavailable Unavailable PICKERAL JR, J SOY PA-C Unavailable Unavailable PICKERAL JR, J SOY PA-C Unavailable Unavailable PICKERAL JR, J SOY PA-C Unavailable Unavailable PICKERAL JR, J SOY PA-C Unavailable Unavailable PICKERAL JR, J SOY PA-C Unavailable Unavailable PICKERAL JR, J SOY PA-C Unavailable Unavailable PICKERAL JR, J SOY PA-C Unavailable Unavailable PICKERAL JR, J SOY PA-C Unavailable Unavailable PICKERAL JR, J SOY PA-C Unavailable Unavailable PICKERAL JR, J SOY PA-C Unavailable Unavailable PICKERAL JR, J SOY PA-C Unavailable Unavailable PICKERAL JR, J SOY PA-C Unavailable Unavailable PICKERAL JR, J SOY PA-C Unavailable Unavailable PICKERAL JR, J SOY PA-C Unavailable Unavailable PICKERAL JR, J SOY PA-C Unavailable Unavailable PICKERAL JR, J SOY PA-C Unavailable Unavailable PICKERAL JR, J SOY PA-C Unavailable Unavailable PICKERAL JR, J SOY PA-C Unavailable Unavailable PICKERAL JR, J SOY PA-C Unavailable Unavailable PICKERAL JR, J SOY PA-C Unavailable Unavailable PICKERAL JR, J SOY PA-C Unavailable Unavailable PICKERAL JR, J SOY PA-C Unavailable Unavailable PICKERAL JR, J SOY PA-C Unavailable Unavailable PICKERAL JR, J SOY PA-C Unavailable Unavailable Jam, Zahra J Unavailable Unavailable Narins, Jonathon MD Unavailable Unavailable Narins, Jonathon Unavailable Unavailable Narins, Jonathon MD Unavailable Unavailable Narins, Puxico MD Unavailable Unavailable Narins, Jonathon WEAVER Unavailable Unavailable Narins, Jonathon WEAVER Unavailable Unavailable Narins, Jonathon WEAVER Unavailable Unavailable Narins, Jonathon WEAVER Unavailable Unavailable Narins, Jonathon WEAVER Unavailable Unavailable Narins, Jonathon WEAVER Unavailable Unavailable Narins, Jonathon WEAVER Unavailable Unavailable Narins, Jonathon WEAVER Unavailable Unavailable Narins, Jonathon WEAVER Unavailable Unavailable Narins, Jonathon MD Unavailable Unavailable Narins, Jonathon WEAVER Unavailable Unavailable Narins, Jonathon WEAVER Unavailable Unavailable Narins, Jonathon WEAVER Unavailable Unavailable Narins, Jonathon WEAVER Unavailable Unavailable Narins, Jonathon WEAVER Unavailable Unavailable Narins, Jonathon WEAVER Unavailable Unavailable Narins, Jonathon WEAVER Unavailable Unavailable Narins, Jonathon WEAVER Unavailable Unavailable Narins, Jonathon WEAVER Unavailable Unavailable Narins, Jonathon WEAVER Unavailable Unavailable Narins, Puxico MD Unavailable Unavailable Narins, Jonathon WEAVER Unavailable Unavailable Narins, Jonathon WEAVER Unavailable Unavailable Narins, Puxico MD Unavailable Unavailable Narins, Puxico MD Unavailable Unavailable Narins, Jonathon Unavailable Unavailable Narins, Jonathon Unavailable Unavailable Narins, Puxico MD Unavailable Unavailable Narins, Puxico Unavailable Unavailable Narins, Jonathon MD Unavailable Unavailable Narins, Puxico MD Unavailable Unavailable Narins, Jonathon MD Unavailable Unavailable Narins, Puxico MD Unavailable Unavailable Narins, Jonathon MD Unavailable Unavailable Narins, Puxico MD Unavailable Unavailable Narins, Puxico MD Unavailable Unavailable Narins, Jonathon MD Unavailable Unavailable Narins, Jonathon MD Unavailable Unavailable Narins, Puxico MD Unavailable Unavailable Narins, Puxico MD Unavailable Unavailable Narins, Puxico Unavailable Unavailable Narins, Jonathon Unavailable Unavailable Narins, Jonathon MD Unavailable Unavailable Jonathon Danielle MD Unavailable Unavailable Jonathon Danielle MD Unavailable Unavailable Jonathon Danielle MD Unavailable Unavailable Jonathon Danielle MD Unavailable Unavailable MEDENT_104, NA Unavailable [phone] JAM, J Zahra ANP Unavailable Unavailable JAM, J Zahra ANP Unavailable Unavailable JAM, J Zahra ANP Unavailable Unavailable JAM, J Zahra ANP Unavailable Unavailable JAM, J Zahra ANP Unavailable Unavailable JAM, J Zahra ANP Unavailable Unavailable JAM, J Zahra ANP Unavailable Unavailable JAM, J Zahra ANP Unavailable Unavailable JAM, J Zahra ANP Unavailable Unavailable JAM, J Zahra ANP Unavailable Unavailable JAM, J Zahra ANP Unavailable Unavailable JAM, J Zahra ANP Unavailable Unavailable JAM, J Zahra ANP Unavailable Unavailable JAM, J Zahra ANP Unavailable Unavailable JAM, J Zahra ANP Unavailable Unavailable JAM, J Zahra ANP Unavailable Unavailable JAM, J Zahra ANP Unavailable Unavailable JAM, J Zahra ANP Unavailable Unavailable JAM, J Zahra ANP Unavailable Unavailable JAM, J Zahra ANP Unavailable Unavailable JAM, J Zahra ANP Unavailable Unavailable JAM, J Zahra ANP Unavailable Unavailable JAM, J Zahra ANP Unavailable Unavailable JAM, J Zahra ANP Unavailable Unavailable JAM, J Zahra ANP Unavailable Unavailable JAM, J Zahra ANP Unavailable Unavailable JAM, J Zahra ANP Unavailable Unavailable JAM, J Zahra ANP Unavailable Unavailable JAM, J Zahra ANP Unavailable Unavailable JAM, J Zahra ANP Unavailable Unavailable JAM, J Zahra ANP Unavailable Unavailable JAM, J Zahra ANP Unavailable Unavailable JAM, J Zahra ANP Unavailable Unavailable JAM, J Zahra ANP Unavailable Unavailable JAM, J Zahra ANP Unavailable Unavailable JAM, J Zahra ANP Unavailable Unavailable JAM, J Zahra ANP Unavailable Unavailable JAM, J Zahra ANP Unavailable Unavailable JAM, J Zahra ANP Unavailable Unavailable JAM, J Zahra ANP Unavailable Unavailable JAM, J Zahra ANP Unavailable Unavailable JAM, J Zahra ANP Unavailable Unavailable JAM, J Zahra ANP Unavailable Unavailable JAM, J Zahra ANP Unavailable Unavailable JAM, J Zahra ANP Unavailable Unavailable JAM, J Zahra ANP Unavailable Unavailable JAM, J Zahra ANP Unavailable Unavailable JAM, J Zahra ANP Unavailable Unavailable JAM, J Zahra ANP Unavailable Unavailable JAM, J Zahra ANP Unavailable Unavailable JAM, J Zahra ANP Unavailable Unavailable JAM, J Zahra ANP Unavailable Unavailable JAM, J Zahra ANP Unavailable Unavailable JAM, J Zahra ANP Unavailable Unavailable JAM, J Zahra ANP Unavailable Unavailable JAM, J Zahra ANP Unavailable Unavailable JAM, J Zahra ANP Unavailable Unavailable JAM, J Zahra ANP Unavailable Unavailable JAM, J Zahra ANP Unavailable Unavailable JAM, J Zahra ANP Unavailable Unavailable JAM, J Zahra ANP Unavailable Unavailable JAM, J Zahra ANP Unavailable Unavailable JAM, J Zahra ANP Unavailable Unavailable JAM, J Zahra ANP Unavailable Unavailable Leonardo, Christopher DO Unavailable Unavailable Leonardo, Christopher DO Unavailable Unavailable Leonardo, Christopher DO Unavailable Unavailable [place], Christopher DO Unavailable Unavailable [place], Christopher DO Unavailable Unavailable Leonardo, Christopher DO Unavailable Unavailable [place], Christopher DO Unavailable Unavailable [place], Christopher DO Unavailable Unavailable [place], Christopher DO Unavailable Unavailable [place], Christopher DO Unavailable Unavailable Juanjose Ceron MD Unavailable Unavailable Juanjose Ceron MD Unavailable Unavailable Juanjose Ceron MD Unavailable Unavailable Juanjose Ceron MD Unavailable Unavailable Juanjose Ceron MD Unavailable Unavailable Juanjose Ceron MD Unavailable Unavailable Juanjose Ceron MD Unavailable Unavailable Juanjose Ceron MD Unavailable Unavailable Juanjose Ceron MD Unavailable Unavailable Juanjose Ceron MD Unavailable Unavailable Juanjose Ceron MD Unavailable Unavailable Juanjose Ceron MD Unavailable Unavailable Juanjose Ceron MD Unavailable Unavailable Juanjose Ceron MD Unavailable Unavailable Juanjose Ceron MD Unavailable Unavailable Juanjose Ceron MD Unavailable Unavailable Juanjose Ceron MD Unavailable Unavailable Juanjose Ceron MD Unavailable Unavailable Juanjose Ceron MD Unavailable Unavailable Juanjose Ceron MD Unavailable Unavailable Juanjose Ceron MD Unavailable Unavailable Juanjose Ceron MD Unavailable Unavailable Juanjose Ceron MD Unavailable Unavailable Juanjose Ceron MD Unavailable Unavailable Juanjoes Ceron MD Unavailable Unavailable Juanjose Ceron MD Unavailable Unavailable Juanjose Ceron MD Unavailable Unavailable Juanjose Ceron MD Unavailable Unavailable Juanjose Ceron MD Unavailable Unavailable Juanjose Ceron MD Unavailable Unavailable Juanjose Ceron MD Unavailable Unavailable Juanjose Ceron MD Unavailable Unavailable Juanjose Ceron MD Unavailable Unavailable Juanjose Ceron MD Unavailable Unavailable Juanjose Ceron MD Unavailable Unavailable Juanjose Ceron MD Unavailable Unavailable Juanjose Ceron MD Unavailable Unavailable Ceron, Juanjose Dereck MD Unavailable Unavailable Ceron, Juanjose Harden MD Unavailable Unavailable Ceron, Juanjose Harden MD Unavailable Unavailable Ceron, Juanjose Harden MD Unavailable Unavailable Ceron, Juanjose Dereck MD Unavailable Unavailable Ceron, Juanjose Harden MD Unavailable Unavailable Ceron, Juanjose Harden MD Unavailable Unavailable Ceron, Juanjose Harden MD Unavailable Unavailable Ceron, Juanjose Harden MD Unavailable Unavailable Ceron, Juanjose Harden MD Unavailable Unavailable Ceron, Juanjose Harden MD Unavailable Unavailable Ceron, Juanjose Harden MD Unavailable Unavailable Ceron, Juanjose Harden MD Unavailable Unavailable Ceron, Juanjose Harden MD Unavailable Unavailable Ceron, Juanjose Harden MD Unavailable Unavailable Ceron, Juanjose Harden MD Unavailable Unavailable Ceron, Juanjose Harden MD Unavailable Unavailable Re-disclosure Warning The records that you are about to access may contain information from federally-assisted alcohol or drug abuse programs. If such information is present, then the following federally mandated warning applies: This information has been disclosed to you from records protected by federal confidentiality rules (42 CFR part 2). The federal rules prohibit you from making any further disclosure of this information unless further disclosure is expressly permitted by the written consent of the person to whom it pertains or as otherwise permitted by 42 CFR part 2. A general authorization for the release of medical or other information is NOT sufficient for this purpose. The Federal rules restrict any use of the information to criminally investigate or prosecute any alcohol or drug abuse patient.The records that you are about to access may contain highly sensitive health information, the redisclosure of which is protected by Article 27-F of the [facility] Public Health law. If you continue you may have access to information: Regarding HIV / AIDS; Provided by facilities licensed or operated by the [facility] Office of Mental Health; or Provided by the [facility] Office for People With Developmental Disabilities. If such information is present, then the following [facility] mandated warning applies: This information has been disclosed to you from confidential records which are protected by state law. State law prohibits you from making any further disclosure of this information without the specific written consent of the person to whom it pertains, or as otherwise permitted by law. Any unauthorized further disclosure in violation of state law may result in a fine or fci sentence or both. A general authorization for the release of medical or other information is NOT sufficient authorization for further disc losure. Family History Family Member Name Family Member Gender Family Member Status Date o f Status Description Data Source(s) Unknown Male Problem [facility] ([facility]) Unknown Male Problem [facility] ([facility]) Unknown Male Problem [facility] ([facility]) Unknown Male Problem [facility] ([facility]) Unknown Female Problem [facility] ([facility]) Encounters Encounter Providers Location Date Indications Data Source(s ) [place] ( in Healthcare facility) Attender: Kelly Danielle MDAdmitter: Jonathon Danielle MDConsultant: Zahra Polk 04/10/2021 10:54:00 AM EDT - 04/11/2021 12:01:00 PM EDT [facility] Outpatient Attender: Jonathon Danielle MDAdmitter: Jonathon jarrell MD 04/10/2021 10:54:00 AM EDT - 04/11/2021 12:01:00 PM EDT 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 Outpatient Attender: Jonathon Danielle MD 04/06/2021 02:48:08 PM EDT [facility] [place] [facility] Outpatient Attender: RICKEY WALSH_104 [facility] at [facility] 04/05/2021 11:20:00 AM EDT MEDENT ([facility]) Outpatient Attender: Boni Berger 04/04/2021 10:00:00 AM EDT MEDENT ([facility] ) Outpatient Attender: SOY Buck 0 02/18/2021 03:20:00 PM EDT MED[facility] ([facility] ) Outpatient Attender: Jonathon Aguero/ [facility] 02/06/2021 11:15:00 AM EDT [facility] Outpatient Attender: Dereck Eubanks/Otto/Brenden/Abdelrahman gonsales 12/24/2020 11:15:00 AM EDT MEDENT ([facility]) Outpatient Attender: Zahra Buck 10:20:00 AM EDT MED[facility] ([facility] ) Outpatient Attender: AURORA GANDHI MD 11/02 10:20:17 AM EDT - 11/02/2020 10:57:44 AM EDT [facility] ([facility] ) Outpatient Attender: Zahra Buck 09:15:00 AM EST MEDENT ([facility] ) Immunizations Vaccine Date Status Description Data Source(s) COVID-19 VACC, MRNA(PFIZER)/PF 04/10/2021 12:00:00 AM EDT completed [facility] COVID-19 VACCINE Pfizer 03/21/2021 12:00:00 AM EDT completed [facility] Vaccine Series Complete: YESThis Data wa s Submitted to [facility]. COVID-19 VACCINE Pfizer 07/12/2020 12:00:00 AM EST completed [facility] Vaccine Series Complete: YESThis Data wa s Submitted to [facility] [employer]. COVID-19 VACCINE Pfizer 06/21/2020 12:00:00 AM EST completed [facility] Vaccine Series Complete: NOThis Data was Submitted to [facility] [employer]. This CVX code allows reporting of a vacc ination when formulation is unknown (for example, when recording a Influenza vaccination when noted on a vaccination card) 03/14/2020 07:59:00 AM EDT completed MEDEN T ([facility]) INFLUENZA VIRUS VACCINE QUADRIVAL SPLIT 2019-(65 YR UP)/PF 03/14/2020 12:00:00 AM EDT completed [facility] Medications Medication Brand Name Start Date Product Form Dose Route Admi nistrative Instructions Pharmacy Instructions Status Indications Reaction Description Data Source(s) 240 mcg/0.7 mL 03/19/2021 12:00:00 AM EDT syringe 0 INJECT DIRECTED INJECT DIRECTED SOLD: 03/20/2021 [facility] Prednisone 10 MG Oral Tablet Prednisone 02/18/2021 12:00:00 AM EDT active MED[facility] ([facility]) 10 mg 02/18/2021 12:00:00 AM EDT tablet 18 TAKE 3 TABS. BY MOUTH DAILY FOR 3 DAYS, THEN TAKE 2 TABS. DAILY FOR 3 DAYS THEN 1 TAB. DAILY FOR 3 DAYS AND STOP TAKE 3 TABS. BY MOUTH DAILY FOR 3 DAYS, THEN TAKE 2 TABS. DAILY FOR 3 DAYS THEN 1 TAB. DAILY FOR 3 DAYS AND STOP SOLD: 02/18/2021 [facility] Covid-19 vaccine, Unspecified 07/12/2020 12:00:00 AM EST completed [facility]) Medication administered onsite Covid-19 vaccine, Unspecified 06/21/2020 12:00:00 AM EST completed [facility]) Medication administered onsite Insurance Providers Payer name Policy type / Coverage type Policy ID Covered alliance party ID Covered alliance party's relationship to roberts Policy Roberts Plan Information [id number] [employer] [id number] SP [id number] [employer] [id number] SP [id number] Medicare Natl Govt Servic Medicare Primary [id number] Self [id number] Medicare Natl Govt Servic Medicare Primary [id number] Self [id number] Medicare Natl Govt Servic Medicare Primary [id number] Self [id number] Medicare Natl Govt Servic Medicare Primary [id number] Self [id number] Umr ([place]) Medigap Part B [id number] Self [id number] [facility] [employer] [id number] Self [id number] [place] Medicare Medicare Part B [id number] Self [id number] [place] (Old) Medigap Part B [id number] Self [id number] [employer] HLTH (pr) Commercial Self [employer] (Old) Medigap Part B [id number] Self [id number] UMR HEA [id number] S [id number] [employer] (Old) Medigap Part B [id number] Self [id number] MEDICARE [facility] [id number] S [id number] UMR [facility] [id number] SP [id number] UMR O [id number] S [id number] [facility] [id number] S [id number] [employer] PPO O [id number] S [id number] [employer] Commercial [id number] Self [id number] [employer] [id number] Self [id number] [employer] Commercial [id number] Self [id number] [employer] P[employer] Commercial [id number] Self [id number] [employer] Commercial [id number] Self MEDICARE [id number] SP [id number] Umr [place] Ppo Medigap Part B [id number] Self [id number] MEDICARE C [id number] S [id number] R O [id number] S [id number] Problems, Conditions, and Diagnoses No Information Surgeries/Procedures Procedure Description Date Indications Data Source(s) Laparoscopy, Surgical, Colpopexy (Suspension Of Vaginal [place] ) 04/10/2021 12:00:00 AM EDT JILLIAN ([facility]) OFFICE OUTPATIENT VISIT 5 MINUTES 04/05/2021 12:00:00 AM EDT MEDENT ([facility]) OFFICE OUTPATIENT VISIT 25 MINUTES 04/04/2021 12:00:00 AM EDT MEDENT ([facility]) ECG ROUTINE ECG W/LEAST 12 LDS W/I&R 04/04/2021 12:00: 00 AM EDT MEDENT ([facility]) OFFICE OUTPATIENT VISIT 10 MINUTES 02/18/2021 12:00:00 AM EDT MEDENT ([facility]) OFFICE OUTPATIENT VISIT 25 MINUTES 02/06/2021 12:00:00 AM EDT [facility] ([facility]) Spirometry 12/24/2020 12:00:00 AM EDT M EDENT ([facility] ) OFFICE OUTPATIENT VISIT 25 MINUTES 12/24/2020 12:00:00 AM EDT MEDENT ([facility]) OFFICE OUTPATIENT VISIT 25 MINUTES 11/26/2020 12:00:00 AM EDT MEDENT ([facility]) Mammogram 05/29/2020 12:00:00 AM EST M EDENT ([facility]) Results ID Date Data Source [id number] 04/11/2021 07:00:21 AM EDT [facility] [place] [facility] Name Value Range Interpretation Code Description Data Yessica rce(s) Supporting Document(s) SODIUM 139 mmol/L (136-145) [facility] [place] [facility] POTASSIUM 4.4 mmol/L (3.6-5.2) [facility] CHLORIDE 109 mmol/L (100-108) H [facility] [place] [facility] CO2 27 mmol/L (22-31) [facility] ANION GAP 3 mmol/L (7-16) L [facility] [place] [facility] UREA NITROGEN 11 mg/dL (7-24) [facility] CREATININE 0.65 mg/dL (0.60-1.00) [facility] [place] [facility] BUN/CREAT RATIO 16.9 RATIO (10.0-20.0) [facility] GLUCOSE 130 mg/dL (70-99) H [facility] [place] [facility] CALCIUM 8.2 mg/dL (8.4-10.2) L [facility] [place] [facility] GFR >60 ml/min/1.73m2 (>59) [facility] [place] [facility] GFR ( AMER) >60 ml/min/1.73m2 (>59) Lab [facility] GFR INTERPRETATION Lab [facility] [place] --NORMAL KIDNEY FUNCTION OR MILD DISEASE - GFR >OR= 60CHRONIC KIDNEY DISEASE - GFR 15 - 59RENAL FAILURE - GFR <15 Est. GFR calculation based on the MDRDstudy equation, which assumes a steadystate for creatinine. Est. GFR should notbe used for medication dosing. ID Date Data Source [id number] 04/11/2021 01:24:00 [place] [address] PATIENT NAME: RAFAEL HALETE OF : 1950REPORT: OPERATIONPATIENT NUMBER: [id number] STATUS: SDMEDICAL RECORD NUMBER: [id number] ADMISSION: 04/10/2021ATE OF DISCHARGE:ROOM: 02 DATE OF PROCEDURE: 04/10/2021 PROCEDURE: Robot-assisted laparoscopic sacral colpopexy. PREOPERATIVE DIAGNOSIS: Incomplete uterovaginal prolapse. POSTOPERATIVE DIAGNOSIS: Incomplete uterovaginal prolapse. ANESTHESIA: General and local. COMPLICATIONS: None. SPECIMENS: None. DRAIN: 16-E[place] Grant catheter. EBL: Less than 25 mL. IV FLUIDS: 1.4 liters of crystalloid. IMPLANTS: Restorelle Y-meshSURGEON: Jonathon Danielle MDASSISTANTS: ALEX Brown and ALEX Rockwell INDICATIONS FOR PROCEDURE: Varsha is a 70-year-old lady with verybothersome and symptomatic post hysterectomy vaginal vault prolapse. Shewas counseled on her options and elected the above procedure. DESCRIPTION OF PROCEDURE: The patient was greeted in preoperative holdingarea where informed consent was obtained. She was brought to the operatingsuite where general anesthesia was induced. SCDs were placed andactivated. She was placed in dorsal lithotomy position with all pressurepoints appropriately padded. A time-out was announced and preoperativeAncef was administered. Pneumoperitoneum was first established with the aid of a Veress needlesupraumbilically. Prior to this, Grant catheter was placed under sterilecondition and the AllSnapverse vaginal manipulator with [place] tip was set up forfuture vaginal manipulation. Once pneumoperitoneum was established, an8-mm robotic port was placed. Laparoscopy demonstrated no injury upon portplacement. The rest of the ports were then placed under vision: Two 8-mmrobotic ports to the left of midline, one to the right of midline, and an8- mm right subcostal AirSeal port. The patient was then placed in steepTrendelenburg and the robot was docked. The instruments were advancedunder vision. The sacral promontory was first identified by sweeping the small bowel outof the pelvis and the sigmoid out of the pelvis and off to the left side. The overlying peritoneum was incised and dissection was carried down toidentify the anterior longitudinal ligament. Enough space was created toattach multiple sutures. The peritoneum was then opened along the courseof the right pelvic sidewall. Care was taken to remain medial to theureter and lateral to the sigmoid. The vesicovaginal space was sharplydissected away with enough space to place 6 cm of mesh and the rectovaginalspace was similarly developed, creating enough space for 8 cm of mesh.The mesh was trimmed accordingly on the back table, then affixed over thevaginal landon using 2-0 PDS in interrupted fashion. Approximately 12 to 15sutures were used over each vaginal wall. The vagina was thenappropriately tensioned and the long arm of the mesh was doubled over andaffixed to the sacral promontory. It was secured using three 2-0 Liberty- Texsutures. Vaginal exam demonstrated excellent support of all compartmentswith residual approximately 2 cm of apical mobility. The excess mesh wastrimmed and the peritoneum was closed over the mesh using 2-0 V-Loc inrunning fashion. Care was taken not to medialize or entrap the ureter, andthe ureter was clearly identified along the course of the right pelvicsidewall uninvolved by dissection or suturing. The robotic instruments werethen removed and the robot was de- docked. The incisions were closed usingMonocryl and skin glue. Anesthesia was reversed and she was transferredPACU in stable condition. DISPOSITION: The patient will be kept overnight for supportive care. Shewill be discharged home tomorrow pending any unforeseen events. She willbe seen back in the office as per protocol. At the end the case all needle, sponge, instrument counts were reported ascorrect. DICTATED BY: Jonathon Danielle MD Dictated: 04/10/2021 17:21DT: 04/10/2021 17:23Job #: [id number] NOTE: [facility] computer generated reports are not confirmed orauthenticated unless they are signed by the provider Electronically Authenticated and Edited by:JONATHON DANIELLE MD on 04/11/2021 01:24 PM EDT Name Value Range Interpretation Code Description Data Yessica rce(s) Supporting Document(s) ID Date Data Source [id number] 04/05/2021 01:02:00 PM EDT [facility] ([facility] Name Value Range Interpretation Code Description Data Yessica rce(s) Supporting Document(s) Coronavirus Covid-19 QL RT pc Laboratory test result [facility] ([facility]) ID Date Data Source [id number] 04/05/2021 06:00:00 AM EDT [facility] Name Value Range Interpretation Code Description Data Yessica rce(s) Supporting Document(s) SARS coronavirus 2 RNA [Presence] in Res piratory specimen by MYRA with probe detection NOT DETECTED [facility] This lab was reported by [facility] [place] [facility]. ID Date Data Source [id number] 04/06/2021 02:48:07 PM EDT Leilani Grant [facility] Name Value Range Interpretation Code Description Data Yessica rce(s) Supporting Document(s) SPECIMEN DESCRIPTION [facility] [place] [place] COVID 19 RESULT (NDET) Lab [place] [facility] [place] NEGATIVE COVID-19 RESULTS DONOT PRECLUDE COVID-2019 INFECTION ANDSHOULD NOT BE USED THE SOLE BASISFOR PATIENT MANAGEMENT DECISIONS. COMMENT Lab Bri[place] THE U.[place]. FDA HAS MADE THIS TEST AVAILABL EUNDER AN EMERGENCY USE AUTHORIZATION(EUA) FOR THE DETECTION AND/OR DIAGNOSISOF THE VIRUS THAT CAUSES COVID-19.THIS ASSAY AMPLIFIES AND DETECTS TARGETDNA USING LOGGING CREW FOREMAN- MEDIATEDAMPLIFICATIONTESTING PERFORMED ON [employer] PANTF-Origin FIRST TEST Lab [place] of [facility] [employer] IN HLTHCARE Lab [facility] [place] SYMPTOMATIC [facility] [place] DATE OF SYMPT ONSET Lab [facility] [place] HOSPITALIZED [place] ICU [facility] [place] [facility] [place] CONGREGATE CARE SET [facility] [place] [place] [facility] [place] [facility] [place] ID Date Data Source [id number] 04/04/2021 10:38:00 PM EDT [facility] ([facility] [place] Name Value Range Interpretation Code Description Data Yessica rce(s) Supporting Document(s) Bacteria identified in Urine by Culture Laboratory test result [facility] ([facility] [place]) ID Date Data Source [id number] 04/04/2021 01:48:00 PM EDT [facility] ([facility]) Name Value Range Interpretation Code Description Data Yessica rce(s) Supporting Document(s) Bacteria identified in Urine by Culture Laboratory test result [facility] ([facility]) FULL REPORT IN LAB NOTES ([facility] and [facility] ). NO GROWTH ID Date Data Source [id number] 04/04/2021 01:48:00 PM EDT [facility] ([facility]) Name Value Range Interpretation Code Description Data Yessica rce(s) Supporting Document(s) Appearance, Urine Laboratory test result [facility] ([facility]) Color, Urine Laboratory test result [facility] NT ([facility]) Specific [place] Urine Auto 1.008 1.002-1.035 [facility] ([facility]) PH,Urine 6.0 units 5.0-9.0 [facility] Protein, Urine Auto Laboratory test result [facility] ([facility]) Glucose, Urine (Ua) Auto Laboratory test result [facility] ([facility]) Ketone, Urine Auto Laboratory test result [facility] ([facility]) Urobilinogen, Urine Auto 0.2 mg/dL 0.0-2.0 [facility] T ([facility]) Bilirubin, Urine Auto Laboratory test result [facility] ([facility]) Nitrite, Urine Auto Laboratory test result [facility] ([facility]) Blood, Urine Blood Laboratory test result [facility] ([facility]) Leukocyte Esterase, Urine Auto Laboratory test result [facility] ([facility]) WBC, Urine Auto 1 /HPF 0-3 [facility] ([facility]) RBC, Urine Auto 0 /HPF 0-3 [facility] ([facility]) Bacteria, Urine Auto Laboratory test result [facility] Squamous Epithelial Cell Ur AU 0 /HPF 0-6 [facility] ([facility]) Hyaline Cast, Urine Auto 0 /LPF 0-1 [facility] ([facility]) ID Date Data Source [id number] 04/04/2021 10:27:00 AM EDT [facility] ([facility]) Name Value Range Interpretation Code Description Data Yessica rce(s) Supporting Document(s) Glucose [Mass/volume] in Serum or Plasma 67 mg/dL 74-99 [facility] ([facility]) 100-125 mg/dL PRE-DIABETES/FASTING >126 mg/dL DIABETES/FASTING Urea nitrogen [Mass/volume] in Serum or Plasma 17 mg/dL 7-18 [facility] ([facility]) Sodium [Moles/volume] in Serum or Plasma 141 meq/L 136-145 [facility] ([facility]) Creatinine 0.6 mg/dL 0.6-1.3 [facility]) Potassium [Moles/volume] in Serum or Plasma 4.4 meq/L 3.5-5.1 [facility] ([facility]) Chloride [Moles/volume] in Serum or Plasma 104 meq/L 98-107 [facility] ([facility]) Carbon dioxide, total [Moles/volume] in Serum or Plasma 31 meq/L 21 -32 [facility] ([facility]) Total Bilirubin 0.4 mg/dL 0.2-1.0 [facility] ([facility]) Calcium [Mass/volume] in Serum or Plasma 10.0 mg/dL 8.5-10.1 [facility] ([facility]) Alkaline phosphatase isoenzyme [Units/volume] in Serum or Pl asma 49 mg/dL 46-116 [facility] ([facility]) Aspartate aminotransferase [Enzymatic activity/volume] in Serum or Plasma 17 U/L 15-37 [facility] ([facility] ) Alanine aminotransferase [Enzymatic activity/volume] in Seru m or Plasma 34 U/L 12-78 [facility] ([facility]) Albumin [Mass/volume] in Serum or Plasma 3.7 g/dL 3.4-5.0 [facility] Glomerular filtration rate/1.73 sq M pre dicted among non-blacks [Volume Rate/Area] in Serum or Plasma by Creatinine-based formula (MDRD) Laboratory test result [facility] Proteinase 3 Ab [Units/volume] in Serum 7.2 g/dL 6.4-8.2 [facility] A/G Ratio 1.06 CALC 1.00-1.90 [facility] Glomerular filtration rate/1.73 sq M pre dicted among blacks [Volume Rate/Area] in Serum or Plasma by Creatinine-based formula (MDRD) Laboratory test result [facility] ([facility]) <content>CHRONIC KIDNEY DISEASE STAGING PER NKF</content>
<content></content>
<content>STAGE I & II GFR >= 60 NORMAL TO MILDLY DECREASED</content>
<content>STAGE III GFR 30-59 MODERATELY DECREASED</content>
<content>STAGE IV GFR 15-29 SEVERELY DECREASED</content>
<content>STAGE V GFR <15 VERY LITTLE GFR LEFT</content>
<content>ESRD GFR <15 ON TETRYL SCREEN OPERATOR</content>
<content></content> ID Date Data Source [id number] 04/04/2021 10:27:00 AM EDT [facility] Name Value Range Interpretation Code Description Data Yessica rce(s) Supporting Document(s) Erythrocytes [#/volume] in Blood by Automated count 3.88 x10*6/UL 4.2 0-6.30 [facility] Leukocytes [#/volume] in Blood by Automated count 6.6 x10*3/UL 4.1-10 .9 [facility] Hematocrit [Volume Fraction] of Blood by Automated count 36.5 % 3 7.0-51.0 [facility] ([facility]) MCV 94.2 fL 80.0-97.0 [facility] Hemoglobin [Mass/volume] in Blood 12.6 g/dL 12.0-18.0 [facility] ([facility]) MCH 32.5 pg 26.0-32.0 [facility] Erythrocyte distribution width [Ratio] by Automated count 12.5 % 11.6-13.7 [facility] ([facility]) MCHC 34.5 g/dL 31.0-38.0 [facility] MPV 9.1 FL 7.8-11.0 [facility] ([facility]) Platelets [#/volume] in Blood by Automated count 296 x10*3/UL 140-440 [facility] ([facility]) Lymph % 22.6 % 10.0-58.5 [facility] Neut % 71.1 % 37.0-92.0 [facility] Mid % 6.3 % 1.7-9.3 [facility] Neut # 4.7 x10*3/UL 2.0-7.8 [facility] ([facility]) Lymph # 1.5 x10*3/UL 0.6-4.1 [facility] ([facility]) Mid # 0.4 x10*3/UL 0.1-0.6 [facility] ([facility]) ID Date Data Source [id number] 02/06/2021 10:52:00 AM EDT [facility] ([facility]) Name Value Range Interpretation Code Description Data Yessica rce(s) Supporting Document(s) Glucose [Presence] in Urine Laboratory test result [facility] ([facility]) Protein [Presence] in Urine by Test strip Laboratory test result [facility] ([facility]) Ua Leuko Laboratory test result [facility] ([facility]) Ua Nitrite Laboratory test result [facility] ([facility] [place]) Ketones [Presence] in Urine by Test strip Laboratory test result [facility] ([facility]) Blood [Presence] in Urine by Visual Laboratory test result [facility] ([facility]) Color of Urine Laboratory test result [facility] ([facility]) Clarity of Urine Laboratory test result [facility] ([facility]) Ua Specific [place] 1.015 1.003-1.030 [facility] ([facility]) pH of Urine by Test strip 7.0 5.0-7.5 [facility] ([facility]) Bilirubin.total [Presence] in Urine by Test strip Laboratory test res ult [facility] ([facility]) Urobilinogen [Mass/volume] in Urine by Test strip 0.2 E.U./dL 0.0-1.0 [facility] ([facility]) ID Date Data Source [id number] 11/26/2020 11:31:00 AM EDT [facility] ([facility]) Name Value Range Interpretation Code Description Data Yessica rce(s) Supporting Document(s) Thyrotropin [Units/volume] in Serum or Plasma by Detec tion limit <= 0.05 mIU/L 0.52 uIU/mL 0.36-3.74 [facility] ID Date Data Source [id number] 11/26/2020 11:31:00 AM EDT [facility] ([facility]) Name Value Range Interpretation Code Description Data Yessica rce(s) Supporting Document(s) Cholesterol [Mass/volume] in Serum or Plasma 227 mg/dL 131-200 [facility] ([facility]) Triglyceride [Mass/volume] in Serum or Plasma 52 mg/dL 30-150 [facility] ([facility]) Cholesterol in HDL [Mass/volume] in Serum or Plasma 121 mg/dL 35-60 [facility] ([facility]) Cholesterol in LDL [Mass/volume] in Serum or Plasma by calcu lation 96 CALC 50-159 [facility] ID Date Data Source [id number] 11/26/2020 11:31:00 AM EDT [facility]) Name Value Range Interpretation Code Description Data Yessica rce(s) Supporting Document(s) Glucose [Mass/volume] in Serum or Plasma 96 mg/dL 74-99 [facility]) 100-125 mg/dL PRE-DIABETES/FASTING >126 mg/dL DIABETES/FASTING Urea nitrogen [Mass/volume] in Serum or Plasma 13 mg/dL 7-18 [facility] ([facility]) Creatinine 0.7 mg/dL 0.6-1.3 [facility] ([facility]) Sodium [Moles/volume] in Serum or Plasma 140 meq/L 136-145 [facility] ([facility]) Chloride [Moles/volume] in Serum or Plasma 103 meq/L 98-107 [facility] ([facility]) Potassium [Moles/volume] in Serum or Plasma 4.1 meq/L 3.5-5.1 [facility] ([facility]) Carbon dioxide, total [Moles/volume] in Serum or Plasma 30 meq/L 21 -32 [facility] ([facility]) Total Bilirubin 0.8 mg/dL 0.2-1.0 [facility] ([facility]) Calcium [Mass/volume] in Serum or Plasma 9.4 mg/dL 8.5-10.1 [facility] ([facility]) Alkaline phosphatase isoenzyme [Units/volume] in Serum or Pl asma 51 mg/dL 46-116 [facility] ([facility]) Aspartate aminotransferase [Enzymatic activity/volume] in Serum or Plasma 24 U/L 15-37 [facility] ([facility] ) Albumin [Mass/volume] in Serum or Plasma 4.0 g/dL 3.4-5.0 [facility] Alanine aminotransferase [Enzymatic activity/volume] in Seru m or Plasma 38 U/L 12-78 [facility] ([facility]) Glomerular filtration rate/1.73 sq M pre dicted among non-blacks [Volume Rate/Area] in Serum or Plasma by Creatinine-based formula (MDRD) Laboratory [facility] A/G Ratio 1.21 CALC 1.00-1.90 [facility]) Proteinase 3 Ab [Units/volume] in Serum 7.3 g/dL 6.4-8.2 [facility]) Glomerular filtration rate/1.73 sq M pre dicted among blacks [Volume Rate/Area] in Serum or Plasma by Creatinine-based formula (MDRD) Laboratory test result [facility] ([facility]) <content>CHRONIC KIDNEY DISEASE STAGING PER NKF</content>
<content></content>
<content>STAGE I & II GFR >= 60 NORMAL TO MILDLY DECREASED</content>
<content>STAGE III GFR 30-59 MODERATELY DECREASED</content>
<content>STAGE IV GFR 15-29 SEVERELY DECREASED</content>
<content>STAGE V GFR <15 VERY LITTLE GFR LEFT</content>
<content>ESRD GFR <15 ON TETRYL SCREEN OPERATOR</content>
<content></content> ID Date Data Source [id number] 11/26/2020 11:31:00 AM EDT [facility]) Name Value Range Interpretation Code Description Data Yessica rce(s) Supporting Document(s) Leukocytes [#/volume] in Blood by Automated count 6.0 x10*3/UL 4.1-10 .9 [facility] ([facility]) Hemoglobin [Mass/volume] in Blood 13.0 g/dL 12.0-18.0 [facility] ([facility]) Hematocrit [Volume Fraction] of Blood by Automated count 38.5 % 3 7.0-51.0 [facility] ([facility]) Erythrocytes [#/volume] in Blood by Automated count 4.00 x10*6/UL 4.2 0-6.30 [facility] ([facility]) MCV 96.1 fL 80.0-97.0 [facility] MCH 32.5 pg 26.0-32.0 [facility] MCHC 33.8 g/dL 31.0-38.0 [facility] Platelets [#/volume] in Blood by Automated count 258 x10*3/UL 140-440 [facility] ([facility]) MPV 9.6 FL 7.8-11.0 [facility] Erythrocyte distribution width [Ratio] by Automated count 12.6 % 11.6-13.7 [facility] ([facility]) Lymph % 23.4 % 10.0-58.5 [facility] Mid % 6.8 % 1.7-9.3 [facility] Neut % 69.8 % 37.0-92.0 [facility] Mid # 0.4 x10*3/UL 0.1-0.6 [facility] ([facility]) Lymph # 1.4 x10*3/UL 0.6-4.1 [facility] ([facility]) Neut # 4.2 x10*3/UL 2.0-7.8 [facility] ([facility]) ID Date Data Source [id number] 06/21/2020 12:00:00 AM EST [facility] Alyce Jacob Patient Name:VARSHA [id number] [facility] Date of : 1950e 89 Date of Exam: 06/21/2020ALEX Howard [id number]#: Fax: [phone] EXAM: ULTRASOUND BREAST BILATERAL COMPLETECLINICAL INFORMATION: Dense breasts.Comparison is 05/17/2019.Whole breast screening ultrasonography was performed bilaterally usinganatomical intelligence and Shear wave elastography when necessary.There are no cystic or solid masses seen in either breast.IMPRESSION:Negative bilateral whole breast screening ultrasound exam. ACR Category 2.VARGHESE Caro/jmcThank you for referring VARSHA HALE to our office. Electronically Signed - MATTHEW SCHWARTZ DO 06/22/20 16:00 Name Value Range Interpretation Code Description Data Yessica rce(s) Supporting Document(s) ID Date Data Source [id number] 05/29/2020 12:00:00 AM EST [facility] Alyce Jacob Patient Name:VARSHA [id number] [facility] Date of : 1950 89 [facility] [id number]#: [phone]: [phone] EXAM: MAMMO SCREENING WITH CADCLINICAL INFORMATION: Screening.Based on the personal and family history information your patient suppliedat the time of imaging, her lifetime risk of breast cancer estimated by theTyrer-Cuzick model is 5.7%. Given that this patient has less than 20% TCrisk score, no further medical management is currently recommended at thistime.Digital screening (2D) mammography was performed bilaterally in the CC andMLO projections. Additionally, breast tomosynthesis (3D mammography) wasperformed bilaterally in the CC and MLO projections. Today's exam wascompared to the prior exam(s).By history, the patient has no complaints of a palpable breast abnormalityor other significant breast complaints.The patient states that a clinical breast exam was not performed.The breasts are unchanged in size and shape. Once again, denseheterogeneous fibroglandular elements are seen bilaterally in a stableappearing pattern but to such a degree that the sensitivity of themammogram in detecting cancer is decreased. There are no vel-soft tissuedensities or spiculated masses. There is no internal architecturaldistortion. There are no suspicious vel-calcific clusters. Skinthickening or nipple retraction is not present.The Volpara volumetric breast density category is C, the breasts areheterogeneously dense which may obscure small masses.IMPRESSION:BI-RADS Category 2 - Benign Finding(s). Stable mammogram. There is noevidence of malignant alteration of the breasts. Followup examinationrecommended in one year.This mammogram was read with the assistance of [employer], an FDAapproved computer aided detection system for mammography.Negative x-ray reports should not delay surgical consultation if a dominantor clinically suspicious mass is present.Not all breast cancers can be identified by mammography. Therefore, werecommend that you continue to perform regular breast self-examination andphysical examination and then promptly contact your physician of anyconcerns or changes.Adenosis and dense breasts may obscure an underlying neoplasm.VARGHESE Caro/Malu you for referring VARSHA HALE to our office. Electronically Signed - MATTHEW SCHWARTZ DO 06/04/20 16:41 Name Value Range Interpretation Code Description Data Yessica rce(s) Supporting Document(s) ID Date Data Source [id number] 05/28/2020 10:38:00 AM EST [facility] ([facility]) Name Value Range Interpretation Code Description Data Yessica rce(s) Supporting Document(s) Magnesium 2.1 mg/dL 1.8-2.4 [facility] Thyrotropin [Units/volume] in Serum or Plasma by Detec tion limit <= 0.05 mIU/L 1.43 uIU/mL 0.36-3.74 [facility] ([facility] ) ID Date Data Source [id number] 05/28/2020 10:38:00 AM EST [facility] ([facility]) Name Value Range Interpretation Code Description Data Ysesica rce(s) Supporting Document(s) Glucose [Mass/volume] in Serum or Plasma 74 mg/dL 74-99 [facility] ([facility]) 100-125 mg/dL PRE-DIABETES/FASTING >126 mg/dL DIABETES/FASTING Urea nitrogen [Mass/volume] in Serum or Plasma 20 mg/dL 7-18 [facility] ([facility]) Creatinine 0.7 mg/dL 0.6-1.3 [facility] ([facility]) Chloride [Moles/volume] in Serum or Plasma 103 meq/L 98-107 [facility] ([facility]) Sodium [Moles/volume] in Serum or Plasma 141 meq/L 136-145 [facility] ([facility]) Potassium [Moles/volume] in Serum or Plasma 4.5 meq/L 3.5-5.1 [facility] ([facility]) Calcium [Mass/volume] in Serum or Plasma 9.7 mg/dL 8.5-10.1 [facility] ([facility]) Carbon dioxide, total [Moles/volume] in Serum or Plasma 33 meq/L 21 -32 [facility] ([facility]) Glomerular filtration rate/1.73 sq M pre dicted among non-blacks [Volume Rate/Area] in Serum or Plasma by Creatinine-based formula (MDRD) Laboratory test result [facility] Glomerular filtration rate/1.73 sq M pre dicted among blacks [Volume Rate/Area] in Serum or Plasma by Creatinine-based formula (MDRD) Laboratory test result [facility] ([facility]) <content>CHRONIC KIDNEY DISEASE STAGING PER NKF</content>
<content></content>
<content>STAGE I & II GFR >= 60 NORMAL TO MILDLY DECREASED</content>
<content>STAGE III GFR 30-59 MODERATELY DECREASED</content>
<content>STAGE IV GFR 15-29 SEVERELY DECREASED</content>
<content>STAGE V GFR <15 VERY LITTLE GFR LEFT</content>
<content>ESRD GFR <15 ON TETRYL SCREEN OPERATOR</content>
<content></content> ID Date Data Source [id number] 04/04/2020 02:00:00 PM EDT [facility] ([facility]) Name Value Range Interpretation Code Description Data Yessica rce(s) Supporting Document(s) Coronavirus 2019 Nasopharygeal Laboratory test result [facility] ([facility]) This nucleic acid amplification test was developed and its performance characteristics determined by [facility]. Nucleic acid amplification tests include PCR and TMA. This test has not been FDA cleared or approved. This test has been authorized by FDA under an Emergency Use Authorization (EUA). This test is only authorized for the duration of time the declaration that circumstances exist justifying the authorization of the emergency use of in vitro diagnostic tests for detection of SARS-CoV-2 virus and/or diagnosis of COVID-19 infection under section 564(b)(1) of the Act, 21 U.S.C. 360bbb-3 (b) (1), unless the authorization is terminated or revoked sooner. When diagnostic testing is negative, the possibility of a false negative result should be considered in the context of a patient's recent exposures and the presence of clinical signs and symptoms consistent with COVID-19. An individual without symptoms of COVID-19 and who is not shedding SARS-CoV-2 virus would expect to have a negative (not detected) result in this assay. Performed at: [facility] [id number] [employer]: Pinky Dash MD, Phone: [phone] Not Detected ID Date Data Source [id number] 04/04/2020 02:00:00 PM EDT [facility] Name Value Range Interpretation Code Description Data Yessica rce(s) Supporting Document(s) SARS coronavirus 2 RNA [facility] This lab was ordered by [facility] and reported by [facility]. Procedure Social History Code Duration Value Status Description Data Source(s ) Smoking 02/06/2021 12:00:00 AM EDT Former Cigarette Smoker com pleted Former Cigarette Smoker [facility] ([facility] [place]) Smoking 12/24/2020 12:00:00 AM EDT Patient is a former smoker completed Patient is a former smoker [facility] ([facility], ) Vital Signs ID Date Data Source UNK Name Value Range Interpretation Code Description Data Source(s) Body mass index (BMI) [Ratio] 26.5 kg/m2 26.5 k g/m2 JILLIAN ([facility]) Systolic blood pressure 122 mm[Hg] 122 mm[Hg] M EDGUI ([facility]) Diastolic blood pressure 68 mm[Hg] 68 mm[Hg] MEDENT ([facility]) Heart rate 69 /min 69 /min MED[facility] ([facility]) Body height 55 [in_i] 55 [in_i] MEDENT ([facility]) 4'7" Body weight 114.00 [lb_av] 114.00 [lb_av] MEDEN T ([facility]) Oxygen saturation in Arterial blood by Pulse oximetry 99 % 99 % MEDENT ([facility]) Systolic blood pressure 122 mm[Hg] 122 mm[Hg] M EDENT ([facility]) Diastolic blood pressure 70 mm[Hg] 70 mm[Hg] MEDENT ([facility]) Heart rate 58 /min 58 /min MEDENT ([facility]) Body height 55 [in_i] 55 [in_i] MEDENT ([facility]) 4'7" Body weight 116.00 [lb_av] 116.00 [lb_av] MEDEN T ([facility]) Body mass index (BMI) [Ratio] 27.0 kg/m2 27.0 k g/m2 MEDENT ([facility]) Body weight 118.00 [lb_av] 118.00 [lb_av] MEDEN T ([facility] [place]) Systolic blood pressure 149 mm[Hg] 149 mm[Hg] M EDENT ([facility] [place]) Diastolic blood pressure 60 mm[Hg] 60 mm[Hg] [facility] ([facility] [place]) Body mass index (BMI) [Ratio] 19.6 kg/m2 19.6 k g/m2 [facility] ([facility] [place]) Body weight 53.525 kg 53.525 kg [facility] ([facility] [place] Body height 65 [in_i] 65 [in_i] [facility] ([facility]) 5'5" Heart rate 59 /min 59 /min [facility] ([facility] [place]) Systolic blood pressure 118 mm[Hg] 118 mm[Hg] M EDENT ([facility], ) Heart rate 68 /min 68 /min MEDENT ([facility], ) Diastolic blood pressure 64 mm[Hg] 64 mm[Hg] [facility] ([facility]) Body weight 53.525 kg 53.525 kg [facility] ([facility]) Body surface area Derived from formula 1.58 m2 1.58 m2 [facility] ([facility]) Oxygen saturation in Arterial blood by Pulse oximetry 100 % 100 % [facility] ([facility]) Room Air Body height 65 [in_i] 65 [in_i] [facility] ([facility]) 5'5" Body weight 118.00 [lb_av] 118.00 [lb_av] MEDEN T ([facility]) Body mass index (BMI) [Ratio] 19.6 kg/m2 19.6 k g/m2 [facility] ([facility]) [place] body weight 125 [lb_av] 125 [lb_av] [employer] ([facility]) Body height 55 [in_i] 55 [in_i] [facility] ([facility]) 4'7" Systolic blood pressure 120 mm[Hg] 120 mm[Hg] [facility] ([facility]) Diastolic blood pressure 50 mm[Hg] 50 mm[Hg] [facility] ([facility]) Heart rate 58 /min 58 /min [facility] ([facility]) Body weight 117.25 [lb_av] 117.25 [lb_av] MEDEN T ([facility]) Oxygen saturation in Arterial blood by Pulse oximetry 98 % 98 % [facility] ([facility]) RM Air Body mass index (BMI) [Ratio] 27.2 kg/m2 27.2 k g/m2 [facility] ([facility]) Systolic blood pressure 110 mm[Hg] 110 mm[facility]Hg] [facility] Body weight 52.164 kg 52.164 kg [facility] ([facility]) Body surface area Derived from formula 1.56 m2 1.56 m2 [facility] ([facility]) Diastolic blood pressure 70 mm[Hg] 70 mm[Hg] [facility] ([facility]) Heart rate 77 /min 77 /min [facility] ([facility]) Oxygen saturation in Arterial blood by Pulse oximetry 100 % 100 % [facility] ([facility]) Room Air Body height 65 [in_i] 65 [in_i] [facility] ([facility]) 5'5" Body weight 115.00 [lb_av] 115.00 [lb_av] [employer] [employer] ([facility]) Body mass index (BMI) [Ratio] 19.1 kg/m2 19.1 k g/m2 [facility]) [place] body weight 125 [lb_av] 125 [lb_av] [employer] ([facility]) Body weight 116.00 [lb_av] 116.00 [lb_av] [employer] ([facility]) Oxygen saturation in Arterial blood by Pulse oximetry 99 % 99 % JILLIAN ([facility]) RM Air Body mass index (BMI) [Ratio] 27.0 kg/m2 27.0 k g/m2 MEDGUI ([facility]) Systolic blood pressure 138 mm[Hg] 138 mm[Hg] M EDENT ([facility]) Diastolic blood pressure 60 mm[Hg] 60 mm[Hg] [facility] ([facility]) Heart rate 63 /min 63 /min MEDGUI ([facility]) Body height 55 [in_i] 55 [in_i] JILLIAN ([facility]) 4'7"
--- OUTSIDE RECORDS SUMMARY | 2021-04-26 13:23 | CCD | Continuity of Care Document ---
Author Author Varsha DANIELLE MD Organization Unknown Address [address] [place] [address] Phone [phone] Care Team Providers Care Conductor Pullman Name Role Phone Zahra Polk A.N.P. AUTM [phone] Problems Description No Information Available Social History [...] Negative Ua Clarity Not Entered Ua Specific [place] 1.015 1.003-1.030 Ua PH 7.0 5.0-7.5 Ua Bilirubin Negative Ua Urobilinogen 0.2 E.U./dL 0.0-1.0 Procedures Date Code Description Status 02/06/2021 [id number] Office/Outpatient Established Mo d MDM 30-39 Min Completed 07/28/2019 [id number] Colonoscopy Completed 07/2015 [id number] Colonoscopy Completed Medical Devices Description No Information Available Encounters Type Date Location Provider Dx Diagnosis Office Visit 02/06/2021 11:15a [facility] Brad Danielle MD [...]
--- OUTSIDE RECORDS SUMMARY | 2021-04-26 13:23 | CCD | Continuity of Care Document ---
Author Author Varsha DANIELLE MD Organization Unknown Address [address] [place] [address] Phone [phone] Care Team Providers Care Integrity Assessor Name Role Phone Zahra Polk A.N.P. AUTM [phone] Problems Description No Information Available Social History [...] Negative Ua Clarity Not Entered Ua Specific [place] 1.015 1.003-1.030 Ua PH 7.0 5.0-7.5 Ua Bilirubin Negative Ua Urobilinogen 0.2 E.U./dL 0.0-1.0 Procedures Date Code Description Status 02/06/2021 53491 Office/Outpatient Established Mo d MDM 30-39 Min Completed 07/28/2019 [id number] Colonoscopy Completed 07/2015 [id number] Colonoscopy Completed Medical Devices Description No Information Available Encounters Type Date Location Provider Dx Diagnosis Office Visit 02/06/2021 11:15a [facility] Brad Danielle MD N99.3 [...]
--- OUTSIDE RECORDS SUMMARY | 2021-04-26 13:23 | CCD | Continuity of Care Document ---
Author Author Varsha DANIELLE MD Organization Unknown Address [address] [place] [address] Phone [phone] Care Team Providers Care Store Assistant Name Role Phone Zahra Polk A.N.P. AUTM [phone] Problems Description No Information Available Social History [...] Negative Ua Clarity Not Entered Ua Specific [place] 1.015 1.003-1.030 Ua PH 7.0 5.0-7.5 Ua Bilirubin Negative Ua Urobilinogen 0.2 E.U./dL 0.0-1.0 Procedures Date Code Description Status 02/06/2021 55161 Office/Outpatient Established Mo d MDM 30-39 Min Completed 07/28/2019 [id number] Colonoscopy Completed 07/2015 [id number] Colonoscopy Completed Medical Devices Description No Information Available Encounters Type Date Location Provider Dx Diagnosis Office Visit 02/06/2021 11:15a [facility]/ [facility] Brad Danielle MD N99.3 [...]
--- OUTSIDE RECORDS SUMMARY | 2021-04-26 13:23 | CCD ---
Continuity of Care Document (CCD) Created on: 02/06/2021 Varsha Hale External Reference #: [id number] : [id number] Sex: Female Author Author Varsha DANIELLE MD Organization Unknown Address [address] [place] [address] Phone [phone] Care Team Providers Care Site Reliability Engineer Name Role Phone Zahra Polk A.N.P. AUTM [phone] Problems Description No Information Available Social History [...] Negative Ua Clarity Not Entered Ua Specific [place] 1.015 1.003-1.030 Ua PH 7.0 5.0-7.5 Ua Bilirubin Negative Ua Urobilinogen 0.2 E.U./dL 0.0-1.0 Procedures Date Code Description Status 02/06/2021 08198 Office/Outpatient Established Mo d MDM 30-39 Min Completed 07/28/2019 [id number] Colonoscopy Completed 07/2015 [id number] Colonoscopy Completed Medical Devices Description No Information Available Encounters Type Date Location Provider Dx Diagnosis Office Visit 02/06/2021 11:15a [facility] St/ [facility] Brad Danielle MD [...]
[2021-04-26 21:29] VITALS: BP 174/74
--- OUTSIDE RECORDS SUMMARY | 2021-04-26 22:24 | CCD ---
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 Role Phone Claudia GANDHI MD Unavailable [...] Unavailable Claudia GANDHI MD Unavailable Unavailable Claudia AGNDHI MD Unavailable Unavailable Claudia GANDHI MD Unavailable [...] Unavailable Narins, Jonathon MD Unavailable Unavailable Narins, [place] MD Unavailable Unavailable Narins, [place] MD Unavailable Unavailable Narins, Jonathon MD Unavailable Unavailable Narins, [place] MD Unavailable Unavailable Narins, [place] MD Unavailable Unavailable Narins, Jonathon MD Unavailable Unavailable Narins, Jonathon MD Unavailable Unavailable Narins, [place] MD Unavailable Unavailable Narins, [place] MD Unavailable Unavailable Narins, Jonathon MD Unavailable Unavailable Narins, Jonathon MD Unavailable Unavailable Narins, Jonathon MD Unavailable Unavailable Narins, Jonathon MD Unavailable Unavailable Narins, Jonathon MD Unavailable Unavailable Narins, [place] MD Unavailable Unavailable Narins, [place] MD Unavailable Unavailable Narins, [place] MD Unavailable Unavailable Narins, Jonathon MD Unavailable Unavailable Narins, [place] MD Unavailable Unavailable Narins, [place] MD Unavailable Unavailable Narins, [place] MD Unavailable Unavailable Narins, [place] MD Unavailable Unavailable Narins, Jonathon MD Unavailable Unavailable Narins, Jonathon MD Unavailable Unavailable Narins, Jonathon MD Unavailable Unavailable Narins, [place] MD Unavailable Unavailable Narins, Jonathon MD Unavailable Unavailable Narins, Jonathon MD Unavailable Unavailable Narins, Jonathon MD Unavailable Unavailable Narins, [place] MD Unavailable Unavailable Narins, [place] MD Unavailable Unavailable Narins, [place] MD Unavailable Unavailable Narins, [place] MD Unavailable Unavailable Narins, [place] MD Unavailable Unavailable Narins, [place] MD Unavailable Unavailable Narins, [place] MD Unavailable Unavailable Narins, [place] MD Unavailable Unavailable Narins, [place] MD Unavailable Unavailable Narins, [place] MD Unavailable Unavailable Narins, Jonathon MD Unavailable Unavailable Narins, [place] MD Unavailable Unavailable PICKERAL JR, J SOY [...] PICKERAL JR, J SOY PA-C Unavailable Unavailable [place]ahra brennan J Unavailable Unavailable Narins, Jonathon MD Unavailable Unavailable Narins, Jonathon Unavailable Unavailable Narins, [place] MD Unavailable Unavailable Narins, [place] MD Unavailable Unavailable Narins, Jonathon WEAVER Unavailable Unavailable Narins, Jonathon WEAVER Unavailable Unavailable Narins, Jonathon WEAVER Unavailable Unavailable Narins, Jonathon WEAVER Unavailable Unavailable Narins, Jonathon WEAVER Unavailable Unavailable Narins, Jonathon WEAVER Unavailable Unavailable Narins, Jonathon WEAVER Unavailable Unavailable Narins, Jonathon MD Unavailable Unavailable Narins, Jonathon MD Unavailable Unavailable Narins, Jonathon MD Unavailable Unavailable Narins, Jonathon WEAVER Unavailable Unavailable Narins, [place] MD Unavailable Unavailable Narins, [place] MD Unavailable Unavailable Narins, Jonathon WEAVER Unavailable Unavailable Narins, Jonathon WEAVER Unavailable Unavailable Narins, Jonathon WEAVER Unavailable Unavailable Narins, Jonathon MD Unavailable Unavailable Narins, [place] MD Unavailable Unavailable Narins, Jonathon MD Unavailable Unavailable Narins, [place] MD Unavailable Unavailable Narins, [place] MD Unavailable Unavailable Narins, Jonathon MD Unavailable Unavailable Narins, [place] MD Unavailable Unavailable Narins, [place] MD Unavailable Unavailable Narins, [place] MD Unavailable Unavailable Narins, Jonathon Unavailable Unavailable Narins, [place] Unavailable Unavailable Narins, Jonathon Unavailable Unavailable Narins, Jonathon MD Unavailable Unavailable Narins, [place] MD Unavailable Unavailable Narins, Jonathon MD Unavailable Unavailable Narins, Jonathon MD Unavailable Unavailable Narins, [place] MD Unavailable Unavailable Narins, Jonathon MD Unavailable Unavailable Narins, Jonathon MD Unavailable Unavailable Narins, [place] MD Unavailable Unavailable Narins, [place] MD Unavailable Unavailable Narins, [place] MD Unavailable Unavailable Narins, [place] MD Unavailable Unavailable Narins, [place] MD Unavailable Unavailable Narins, Jonathon Unavailable Unavailable Narins, Jonathon Unavailable Unavailable Jonathon Danielle MD Unavailable Unavailable Jonathon Danielle MD Unavailable Unavailable Jonathon Danielle MD Unavailable Unavailable Jonathon Danielle MD Unavailable Unavailable Jonathon Danielle MD Unavailable Unavailable MEDENT_104, NA Unavailable [phone] ARIEL, J Zahra ANP Unavailable Unavailable ARIEL, J Zahra ANP Unavailable Unavailable ARIEL, J Zahra ANP Unavailable Unavailable ARIEL, J Zahra ANP Unavailable Unavailable ARIEL, J Zahra ANP Unavailable Unavailable ARIEL, J Zahra ANP Unavailable Unavailable ARIEL, J Zahra ANP Unavailable Unavailable ARIEL, J Zahra ANP Unavailable Unavailable ARIEL, J Zahra ANP Unavailable Unavailable ARIEL, J Zahra ANP Unavailable Unavailable ARIEL, J Zahra ANP Unavailable Unavailable ARIEL, J Zahra ANP Unavailable Unavailable ARIEL, J Zahra ANP Unavailable Unavailable ARIEL, J Zahra ANP Unavailable Unavailable ARIEL, J Zahra ANP Unavailable Unavailable ARIEL, J Zahra ANP Unavailable Unavailable ARIEL, J Zahra ANP Unavailable Unavailable ARIEL, J Zahra ANP Unavailable Unavailable ARIEL, J Zahra ANP Unavailable Unavailable ARIEL, J Zahra ANP Unavailable Unavailable ARIEL, J Zahra ANP Unavailable Unavailable ARIEL, J Zahra ANP Unavailable Unavailable ARIEL, J Zahra ANP Unavailable Unavailable ARIEL, J Zahra ANP Unavailable Unavailable ARIEL, J Zahra ANP Unavailable Unavailable ARIEL, J Zahra ANP Unavailable Unavailable ARIEL, J Zahra ANP Unavailable Unavailable ARIEL, J Zahra ANP Unavailable Unavailable ARIEL, J Zahra ANP Unavailable Unavailable ARIEL, J Zahra ANP Unavailable Unavailable ARIEL, J Zahra ANP Unavailable Unavailable ARIEL, J Zahra ANP Unavailable Unavailable ARIEL, J Zahra ANP Unavailable Unavailable ARIEL, J Zahra ANP Unavailable Unavailable ARIEL, J Zahra ANP Unavailable Unavailable ARIEL, J Zahra ANP Unavailable Unavailable ARIEL, J Zahra ANP Unavailable Unavailable ARIEL, J Zahra ANP Unavailable Unavailable ARIEL, J Zahra ANP Unavailable Unavailable ARIEL, J Zahra ANP Unavailable Unavailable ARIEL, J Zahra ANP Unavailable Unavailable ARIEL, J Zahra ANP Unavailable Unavailable ARIEL, J Zahra ANP Unavailable Unavailable ARIEL, J Zahra ANP Unavailable Unavailable ARIEL, J Zahra ANP Unavailable Unavailable ARIEL, J Zahra ANP Unavailable Unavailable ARIEL, J Zahra ANP Unavailable Unavailable ARIEL, J Zahra ANP Unavailable Unavailable ARIEL, J Zahra ANP Unavailable Unavailable ARIEL, J Zahra ANP Unavailable Unavailable ARIEL, J Zahra ANP Unavailable Unavailable ARIEL, J Zahra ANP Unavailable Unavailable ARIEL, J Zahra ANP Unavailable Unavailable ARIEL, J Zahra ANP Unavailable Unavailable ARIEL, J Zahra ANP Unavailable Unavailable ARIEL, J Zahra ANP Unavailable Unavailable ARIEL, J Zahra ANP Unavailable Unavailable ARIEL, J Zahra ANP Unavailable Unavailable ARIEL, J Zahra ANP Unavailable Unavailable ARIEL, J Zahra ANP Unavailable Unavailable ARIEL, J Zahra ANP Unavailable Unavailable ARIEL, J Zahra ANP Unavailable Unavailable ARIEL, J Zahra ANP Unavailable Unavailable ARIEL, J Zahra ANP Unavailable Unavailable Leonardo, Christopher DO Unavailable Unavailable Lignum, Christopher DO Unavailable Unavailable Lignum, Christopher DO Unavailable Unavailable Leonardo, Christopher DO Unavailable Unavailable Leonardo, Christopher DO Unavailable Unavailable Leonardo, Christopher DO Unavailable Unavailable Leonardo, Christopher DO Unavailable Unavailable Lignum, Christopher DO Unavailable Unavailable Leonardo, Christopher DO Unavailable Unavailable Lignum, Christopher DO Unavailable Unavailable Juanjose Ceron MD [...] is protected by Article 27-F of the [facility] Public Health law. If you continue you may have access to information: Regarding HIV / AIDS; Provided by facilities licensed or operated by the [facility] Office of Mental Health; or Provided by the [facility] Office for People With Developmental Disabilities. If such information is present, then the following [facility] mandated warning applies: This information has been [...] law may result in a fine or halfway sentence or both. A general authorization for [...] ([facility]) Unknown Female Problem MED[facility] ([facility] ) Encounters Encounter Providers Location Date Indications Data Source(s ) ( in Healthcare facility) Attender: Kelly Danielle MDAdmitter: Jonathon Danielle MDConsultant: Zahra Polk 04/10/2021 10:54:00 AM EDT - 04/11/2021 12:01:00 PM EDT [facility] Outpatient Attender: Jonathon Danielle MDAdmitter: Jonathon jarrell MD 04/10/2021 10:54:00 AM EDT - 04/11/2021 12:01:00 PM EDT VAGINAL VAULT PROLAPSE N99.3 [facility] VAGINAL VAULT PROLAPSE N99.3 Patient discharged. Outpatient Attender: Jonathon Danielle MD 04/06/2021 02:48:08 PM EDT [facility] [place] Outpatient Attender: RICKEY WALSH_104 CMP Internal Med at [facility] 04/05/2021 11:20:00 AM EDT MEDENT ([facility]) Outpatient Attender: Boni Berger 04/04/2021 10:00:00 AM EDT MEDENT ([facility] ) Outpatient Attender: SOY Buck 0 02/18/2021 03:20:00 PM EDT MEDENT ([facility] ) Outpatient Attender: Jonathon Aguero/ A.M.PTyler Urolog y 02/06/2021 11:15:00 AM EDT MEDENT ([facility]) Outpatient Attender: Dereck Eubanks/Otto/Brenden/Abdelrahman gonsales 12/24/2020 11:15:00 AM EDT MEDENT ([facility] Outpatient Attender: Zahra Buck 10:20:00 AM EDT MEDENT ([facility] ) Outpatient Attender: AURORA GANDHI MD 11/02 10:20:17 AM EDT - 11/02/2020 10:57:44 AM EDT [facility] ([facility] ) Outpatient Attender: Zahra Buck 09:15:00 AM EST MEDENT ([facility] ) Immunizations Vaccine Date Status Description Data Source(s) COVID-19 VACC, MRNA(PFIZER)/PF 04/10/2021 12:00:00 AM EDT completed [facility] COVID-19 VACCINE Pfizer 03/21/2021 12:00:00 AM EDT completed [facility] Vaccine Series Complete: YESThis Data wa s Submitted to [facility] Via [employer]. COVID-19 VACCINE Pfizer 07/12/2020 12:00:00 AM EST completed [facility] Vaccine Series Complete: YESThis Data wa s Submitted to [facility] Via [employer]. COVID-19 VACCINE Pfizer 06/21/2020 12:00:00 AM EST completed [facility] Vaccine Series Complete: NOThis Data was Submitted to [facility] Via [employer]. This CVX code allows reporting of a vacc ination when formulation is unknown (for example, when recording a Influenza vaccination when noted on a vaccination card) 03/14/2020 07:59:00 AM EDT completed MEDEN T ([facility]) INFLUENZA VIRUS VACCINE QUADRIVAL SPLIT (65 YR UP)/PF 03/14/2020 12:00:00 AM EDT completed [facility] Medications Medication Brand Name Start Date Product Form Dose Route Admi nistrative Instructions Pharmacy Instructions Status Indications Reaction Description Data Source(s) 240 mcg/0.7 mL 03/19/2021 12:00:00 AM EDT syringe 0 INJECT DIRECTED INJECT DIRECTED SOLD: 03/20/2021 [facility] Prednisone 10 MG Oral Tablet Prednisone 02/18/2021 12:00:00 AM EDT active [facility] ([facility]) 10 mg 02/18/2021 12:00:00 AM [...] Unspecified 07/12/2020 12:00:00 AM EST completed [facility]) Medication administered onsite Covid-19 vaccine, Unspecified 06/21/2020 12:00:00 AM EST completed [facility]) Medication administered onsite Insurance Providers Payer name Policy type / Coverage type Policy ID Covered republican ID Covered republican's relationship to roberts Policy Roberts Plan Information [id number] [employer] [id number] SP [id number] [employer] [id number] SP [id number] Medicare Natl Govt Servic Medicare Primary [id number] Self [id number] Medicare Natl Govt Servic Medicare Primary [id number] Self [id number] Medicare Natl Govt Servic Medicare Primary [id number] Self [id number] Medicare Natl Govt Servic Medicare Primary [id number] Self [id number] Umr ([place]) Medigap Part B [id number] Self [id number] [facility] [employer] [id number] Self [id number] [place] Medicare Part B [id number] Self [id number] [place] (Old) Medigap Part B [id number] Self [id number] [employer] HLTH (pr) Commercial Self [employer] (Old) Medigap Part B [id number] Self [id number] [facility] [id number] SP [id number] [place] (Old) Medigap Part B [id number] Self [id number] UMR HEA [id number] S [id number] MEDICARE MCA [id number] S [id number] UMR O [id number] S [id number] MEDICARE [id number] SP [id number] [employer] PPO O [id number] S [id number] [employer] Ppo Commercial [id number] Self [id number] [employer] Ppo Commercial [id number] Self [id number] [employer] Ppo Commercial [id number] Self [id number] [employer] Ppo Commercial [id number] Self [id number] [place] Commercial [id number] Self MEDICARE MCA [id number] S [id number] Umr [place] Ppo Medigap Part B [id number] Self [id number] MEDICARE C [id number] S [id number] R O [id number] S [id number] Problems, Conditions, and Diagnoses No Information Surgeries/Procedures Procedure Description Date Indications Data Source(s) Laparoscopy, Surgical, Colpopexy (Suspension Of Vaginal [place] ) 04/10/2021 12:00:00 AM EDT JILLIAN ([facility]) OFFICE OUTPATIENT VISIT 5 MINUTES 04/05/2021 12:00:00 AM EDT MEDENT ([facility]) OFFICE OUTPATIENT VISIT 25 MINUTES 04/04/2021 12:00:00 AM EDT MEDENT ([facility]) ECG ROUTINE ECG W/LEAST 12 LDS W/I&R 04/04/2021 12:00: 00 AM EDT MEDENT ([facility]) OFFICE OUTPATIENT VISIT 10 MINUTES 02/18/2021 12:00:00 AM EDT MEDENT ([facility]) OFFICE OUTPATIENT VISIT 25 MINUTES 02/06/2021 12:00:00 AM EDT MED[facility] ([facility] [place]) Spirometry 12/24/2020 12:00:00 AM EDT M EDENT ([facility], ) OFFICE OUTPATIENT VISIT 25 MINUTES 12/24/2020 12:00:00 AM EDT MEDENT ([facility]) OFFICE OUTPATIENT VISIT 25 MINUTES 11/26/2020 12:00:00 AM EDT MEDENT ([facility]) Mammogram 05/29/2020 12:00:00 AM EST M EDENT ([facility]) Results ID Date Data Source [id number] 04/11/2021 07:00:21 AM EDT [facility] Name Value Range Interpretation Code Description Data Yessica rce(s) Supporting Document(s) SODIUM 139 mmol/L (136-145) [facility] POTASSIUM 4.4 mmol/L (3.6-5.2) [facility] CHLORIDE 109 mmol/L (100-108) H [facility] CO2 27 mmol/L (22-31) [facility] ANION GAP 3 mmol/L (7-16) L [facility] UREA NITROGEN 11 mg/dL (7-24) [facility] CREATININE 0.65 mg/dL (0.60-1.00) [facility] BUN/CREAT RATIO 16.9 RATIO (10.0-20.0) [facility] GLUCOSE 130 mg/dL (70-99) H [facility] CALCIUM 8.2 mg/dL (8.4-10.2) L [facility] GFR >60 ml/min/1.73m2 (>59) [facility] [place] [facility] GFR ( AMER) >60 ml/min/1.73m2 (>59) Lab [facility] GFR INTERPRETATION Lab [facility] [place] --NORMAL KIDNEY FUNCTION OR MILD DISEASE - GFR >OR= 60CHRONIC KIDNEY DISEASE - GFR 15 - 59RENAL FAILURE - GFR <15 Est. GFR calculation based on the MDRDstudy equation, which assumes a steadystate for creatinine. Est. GFR should notbe used for medication dosing. ID Date Data Source [id number] 04/11/2021 01:24:00 [place] [address] PATIENT NAME: VARSHA WOLFDATE OF : 1950REPORT: OPERATIONPATIENT NUMBER: [id number] STATUS: SDMEDICAL RECORD NUMBER: [id number] ADMISSION: 04/10/2021ATE OF DISCHARGE:ROOM: 02 DATE OF PROCEDURE: 04/10/2021 PROCEDURE: Robot-assisted laparoscopic sacral colpopexy. PREOPERATIVE DIAGNOSIS: Incomplete uterovaginal prolapse. POSTOPERATIVE DIAGNOSIS: Incomplete uterovaginal prolapse. ANESTHESIA: General and local. COMPLICATIONS: None. SPECIMENS: None. DRAIN: 16-Setswana Grant catheter. EBL: Less than 25 mL. [...] catheter was placed under sterilecondition and the AllCard Isle vaginal manipulator with Dmitri tip was set up forfuture vaginal manipulation. [...] promontory. It was secured using three 2-0 [place]- Tex[place]utures. Vaginal exam demonstrated excellent support of [...] MD Dictated: 04/10/2021 17:21DT: 04/10/2021 17:23Job #: [id number] NOTE: [facility] computer generated reports are not confirmed orauthenticated unless they are signed by the provider Electronically Authenticated and Edited by:JONATHON DANIELLE MD on 04/11/2021 01:24 PM EDT Name Value Range Interpretation Code Description Data Yessica rce(s) Supporting Document(s) ID Date Data Source [id number] 04/05/2021 01:02:00 PM EDT [facility] ([facility] Name Value Range Interpretation Code Description Data Yessica rce(s) Supporting Document(s) Coronavirus Covid-19 QL RT pc Laboratory test result [facility] ([facility]) ID Date Data Source [id number] 04/05/2021 06:00:00 AM EDT [facility] Name Value Range Interpretation Code Description Data Yessica rce(s) Supporting Document(s) SARS coronavirus 2 RNA [Presence] in Res piratory specimen by MYRA with probe detection NOT DETECTED [facility] This lab was reported by [facility] [place]. ID Date Data Source [id number] 04/06/2021 02:48:07 PM EDT [facility] Name Value Range Interpretation Code Description Data Yessica rce(s) Supporting Document(s) SPECIMEN DESCRIPTION [facility] [place] COVID 19 RESULT (NDET) Lab [facility] o f JONAH NEGATIVE COVID-19 RESULTS DONOT PRECLUDE COVID-2019 INFECTION ANDSHOULD NOT BE USED THE SOLE BASISFOR PATIENT MANAGEMENT DECISIONS. COMMENT Lab [facility] mena [facility] THE [place] FDA HAS MADE THIS TEST AVAILABL EUNDER AN EMERGENCY USE AUTHORIZATION(EUA) FOR THE DETECTION AND/OR DIAGNOSISOF THE VIRUS THAT CAUSES COVID-19.THIS ASSAY AMPLIFIES AND DETECTS TARGETDNA USING FACILITIES MAINTENANCE ASSISTANT- MEDIATEDAMPLIFICATIONTESTING PERFORMED ON 4Home PANTKarmaloop FIRST TEST [facility] [place] [facility] [place] EMPLOYED IN HLTHCARE [facility] [place] SYMPTOMATIC [facility] [place] [facility] [place] DATE OF SYMPT ONSET [facility] [place] H[facility]IZED [facility] [place] [facility] [place] [facility] CONGREGATE CARE SET [facility] [place] [facility] [place] [facility] ID Date Data Source [id number] 04/04/2021 10:38:00 PM EDT [facility] ([facility] Name Value Range Interpretation Code Description Data Eyssica rce(s) Supporting Document(s) Bacteria identified in Urine by Culture Laboratory test result [facility] ([facility]) ID Date Data Source [id number] 04/04/2021 01:48:00 PM EDT MED[facility] ([facility]) Name Value Range Interpretation Code Description Data Yessica rce(s) Supporting Document(s) Bacteria identified in Urine by Culture Laboratory test result MEDENT ([facility]) FULL REPORT IN LAB NOTES (eCW and Medent ). NO GROWTH ID Date Data Source [id number] 04/04/2021 01:48:00 PM EDT [facility] ([facility]) Name Value Range Interpretation Code Description Data Yessica rce(s) Supporting Document(s) Appearance, Urine Laboratory test result MEDENT ([facility]) Color, Urine Laboratory test result MEDE NT ([facility]) Specific [place] Urine Auto 1.008 1.002-1.035 [facility] ([facility]) PH,Urine 6.0 units 5.0-9.0 [facility]) Protein, Urine Auto Laboratory test result [facility] ([facility]) Glucose, Urine (Ua) Auto Laboratory test result [facility] ([facility]) Ketone, Urine Auto Laboratory test result [facility] ([facility]) Urobilinogen, Urine Auto 0.2 mg/dL 0.0-2.0 MEDEN T ([facility]) Bilirubin, Urine Auto Laboratory test result MED[facility] ([facility]) Nitrite, Urine Auto Laboratory test result [facility] ([facility]) Blood, Urine Blood Laboratory test result [facility] ([facility]) Leukocyte Esterase, Urine Auto Laboratory test result MED[facility] ([facility]) WBC, Urine Auto 1 /HPF 0-3 [facility] ([facility]) RBC, Urine Auto 0 /HPF 0-3 [facility] ([facility]) Bacteria, Urine Auto Laboratory test result [facility] Squamous Epithelial Cell Ur AU 0 /HPF 0-6 [facility] ([facility]) Hyaline Cast, Urine Auto 0 /LPF 0-1 MEDEN T ([facility]) ID Date Data Source [id number] 04/04/2021 10:27:00 AM EDT MED[facility] ([facility]) Name Value Range Interpretation Code Description Data Yessica rce(s) Supporting Document(s) Glucose [Mass/volume] in Serum or Plasma 67 mg/dL 74-99 [facility] ([facility]) 100-125 mg/dL PRE-DIABETES/FASTING >126 mg/dL DIABETES/FASTING Urea nitrogen [Mass/volume] in Serum or Plasma 17 mg/dL 7-18 [facility] ([facility]) Sodium [Moles/volume] in Serum or Plasma 141 meq/L 136-145 [facility] ([facility]) Creatinine 0.6 mg/dL 0.6-1.3 [facility] ([facility] Potassium [Moles/volume] in Serum or Plasma 4.4 meq/L 3.5-5.1 [facility] ([facility]) Chloride [Moles/volume] in Serum or Plasma 104 meq/L 98-107 [facility] ([facility]) Carbon dioxide, total [Moles/volume] in Serum or Plasma 31 meq/L 21 -32 [facility] ([facility]) Total Bilirubin 0.4 mg/dL 0.2-1.0 [facility] ([facility]) Calcium [Mass/volume] in Serum or Plasma 10.0 mg/dL 8.5-10.1 [facility] ([facility]) Alkaline phosphatase isoenzyme [Units/volume] in Serum or Pl asma 49 mg/dL 46-116 [facility] ([facility]) Aspartate aminotransferase [Enzymatic activity/volume] in Serum or Plasma 17 U/L 15-37 [facility] ([facility] ) Alanine aminotransferase [Enzymatic activity/volume] in Seru m or Plasma 34 U/L 12-78 [facility] ([facility]) Albumin [Mass/volume] in Serum or Plasma 3.7 g/dL 3.4-5.0 [facility] Glomerular filtration rate/1.73 sq M pre dicted among non-blacks [Volume Rate/Area] in Serum or Plasma by Creatinine-based formula (MDRD) Laboratory test result [facility] Proteinase 3 Ab [Units/volume] in Serum 7.2 g/dL 6.4-8.2 [facility] A/G Ratio 1.06 CALC 1.00-1.90 [facility] Glomerular filtration rate/1.73 sq M pre dicted among blacks [Volume Rate/Area] in Serum or Plasma by Creatinine-based formula (MDRD) Laboratory test result [facility] ([facility]) <content>CHRONIC KIDNEY DISEASE STAGING PER NKF</content>
<content></content>
<content>STAGE I & II GFR >= 60 NORMAL TO MILDLY DECREASED</content>
<content>STAGE III GFR 30-59 MODERATELY DECREASED</content>
<content>STAGE IV GFR 15-29 SEVERELY DECREASED</content>
<content>STAGE V GFR <15 VERY LITTLE GFR LEFT</content>
<content>ESRD GFR <15 ON HUMAN RESOURCES ASSISTANT MANAGER</content>
<content></content> ID Date Data Source [id number] 04/04/2021 10:27:00 AM EDT [facility] Name Value Range Interpretation Code Description Data Yessica rce(s) Supporting Document(s) Erythrocytes [#/volume] in Blood by Automated count 3.88 x10*6/UL 4.2 0-6.30 [facility] ([facility] Leukocytes [#/volume] in Blood by Automated count 6.6 x10*3/UL 4.1-10 .9 [facility] ([facility] Hematocrit [Volume Fraction] of Blood by Automated count 36.5 % 3 7.0-51.0 [facility] ([facility]) MCV 94.2 fL 80.0-97.0 [facility] Hemoglobin [Mass/volume] in Blood 12.6 g/dL 12.0-18.0 [facility] ([facility]) MCH 32.5 pg 26.0-32.0 [facility] Erythrocyte distribution width [Ratio] by Automated count 12.5 % 11.6-13.7 [facility] ([facility]) MCHC 34.5 g/dL 31.0-38.0 [facility] MPV 9.1 FL 7.8-11.0 [facility] Platelets [#/volume] in Blood by Automated count 296 x10*3/UL 140-440 [facility] ([facility]) Lymph % 22.6 % 10.0-58.5 [facility] Neut % 71.1 % 37.0-92.0 [facility] Mid % 6.3 % 1.7-9.3 [facility] Neut # 4.7 x10*3/UL 2.0-7.8 [facility] ([facility]) Lymph # 1.5 x10*3/UL 0.6-4.1 [facility] ([facility]) Mid # 0.4 x10*3/UL 0.1-0.6 [facility] ([facility]) ID Date Data Source [id number] 02/06/2021 10:52:00 AM EDT [facility] ([facility] [place]) Name Value Range Interpretation Code Description Data Yessica rce(s) Supporting Document(s) Glucose [Presence] in Urine Laboratory test result [facility] ([facility]) Protein [Presence] in Urine by Test strip Laboratory test result [facility] ([facility] [place]) Ua Leuko Laboratory test result [facility] ([facility] [place]) Ua Nitrite Laboratory test result [facility] ([facility] [place]) Ketones [Presence] in Urine by Test strip Laboratory test result [facility] ([facility] [place]) Blood [Presence] in Urine by Visual Laboratory test result [facility] ([facility]) Color of Urine Laboratory test result [facility] ([facility]) Clarity of Urine Laboratory test result [facility] ([facility]) Ua Specific [place] 1.015 1.003-1.030 [facility] ([facility]) pH of Urine by Test strip 7.0 5.0-7.5 [facility] ([facility]) Bilirubin.total [Presence] in Urine by Test strip Laboratory test res ult [facility] ([facility]) Urobilinogen [Mass/volume] in Urine by Test strip 0.2 E.U./dL 0.0-1.0 [facility] ([facility]) ID Date Data Source [id number] 11/26/2020 11:31:00 AM EDT [facility] ([facility]) Name Value Range Interpretation Code Description Data Yessica rce(s) Supporting Document(s) Thyrotropin [Units/volume] in Serum or Plasma by Detec tion limit <= 0.05 mIU/L 0.52 uIU/mL 0.36-3.74 [facility] ([facility] ID Date Data Source [id number] 11/26/2020 11:31:00 AM EDT [facility] ([facility]) Name Value Range Interpretation Code Description Data Yessica rce(s) Supporting Document(s) Cholesterol [Mass/volume] in Serum or Plasma 227 mg/dL 131-200 [facility] ([facility]) Triglyceride [Mass/volume] in Serum or Plasma 52 mg/dL 30-150 [facility] ([facility]) Cholesterol in HDL [Mass/volume] in Serum or Plasma 121 mg/dL 35-60 [facility] ([facility]) Cholesterol in LDL [Mass/volume] in Serum or Plasma by calcu lation 96 CALC 50-159 [facility] ([facility] ID Date Data Source [id number] 11/26/2020 11:31:00 AM EDT [facility] ([facility] Name Value Range Interpretation Code Description Data Yessica rce(s) Supporting Document(s) Glucose [Mass/volume] in Serum or Plasma 96 mg/dL 74-99 [facility] ([facility]) 100-125 mg/dL PRE-DIABETES/FASTING >126 mg/dL DIABETES/FASTING Urea nitrogen [Mass/volume] in Serum or Plasma 13 mg/dL 7-18 [facility] ([facility]) Creatinine 0.7 mg/dL 0.6-1.3 [facility] ([facility]) Sodium [Moles/volume] in Serum or Plasma 140 meq/L 136-145 [facility] ([facility]) Chloride [Moles/volume] in Serum or Plasma 103 meq/L 98-107 [facility] ([facility]) Potassium [Moles/volume] in Serum or Plasma 4.1 meq/L 3.5-5.1 [facility] ([facility]) Carbon dioxide, total [Moles/volume] in Serum or Plasma 30 meq/L 21 -32 [facility] ([facility]) Total Bilirubin 0.8 mg/dL 0.2-1.0 [facility] ([facility]) Calcium [Mass/volume] in Serum or Plasma 9.4 mg/dL 8.5-10.1 [facility] ([facility]) Alkaline phosphatase isoenzyme [Units/volume] in Serum or Pl asma 51 mg/dL 46-116 [facility] ([facility]) Aspartate aminotransferase [Enzymatic activity/volume] in Serum or Plasma 24 U/L 15-37 [facility] ([facility] ) Albumin [Mass/volume] in Serum or Plasma 4.0 g/dL 3.4-5.0 [facility] ([facility] Alanine aminotransferase [Enzymatic activity/volume] in Seru m or Plasma 38 U/L 12-78 [facility] ([facility]) Glomerular filtration rate/1.73 sq M pre dicted among non-blacks [Volume Rate/Area] in Serum or Plasma by Creatinine-based formula (MDRD) Laboratory test result [facility] ([facility] ) A/G Ratio 1.21 CALC 1.00-1.90 [facility]) Proteinase 3 Ab [Units/volume] in Serum 7.3 g/dL 6.4-8.2 [facility] ([facility]) Glomerular filtration rate/1.73 sq M pre dicted among blacks [Volume Rate/Area] in Serum or Plasma by Creatinine-based formula (MDRD) Laboratory test result [facility] ([facility]) <content>CHRONIC KIDNEY DISEASE STAGING PER NKF</content>
<content></content>
<content>STAGE I & II GFR >= 60 NORMAL TO MILDLY DECREASED</content>
<content>STAGE III GFR 30-59 MODERATELY DECREASED</content>
<content>STAGE IV GFR 15-29 SEVERELY DECREASED</content>
<content>STAGE V GFR <15 VERY LITTLE GFR LEFT</content>
<content>ESRD GFR <15 ON HUMAN RESOURCES ASSISTANT MANAGER</content>
<content></content> ID Date Data Source [id number] 11/26/2020 11:31:00 AM EDT [facility] ([facility]) Name Value Range Interpretation Code Description Data Yessica rce(s) Supporting Document(s) Leukocytes [#/volume] in Blood by Automated count 6.0 x10*3/UL 4.1-10 .9 [facility] ([facility]) Hemoglobin [Mass/volume] in Blood 13.0 g/dL 12.0-18.0 [facility] ([facility]) Hematocrit [Volume Fraction] of Blood by Automated count 38.5 % 3 7.0-51.0 [facility] ([facility] Erythrocytes [#/volume] in Blood by Automated count 4.00 x10*6/UL 4.2 0-6.30 [facility] ([facility]) MCV 96.1 fL 80.0-97.0 [facility] ([place] [facility]) MCH 32.5 pg 26.0-32.0 [facility] [facility]) MCHC 33.8 g/dL 31.0-38.0 [facility] ([facility]) Platelets [#/volume] in Blood by Automated count 258 x10*3/UL 140-440 [facility] ([facility]) MPV 9.6 FL 7.8-11.0 [facility] ([facility]) Erythrocyte distribution width [Ratio] by Automated count 12.6 % 11.6-13.7 [facility] ([facility]) Lymph % 23.4 % 10.0-58.5 [facility] Mid % 6.8 % 1.7-9.3 [facility]) Neut % 69.8 % 37.0-92.0 [facility] Mid # 0.4 x10*3/UL 0.1-0.6 [facility] ([facility]) Lymph # 1.4 x10*3/UL 0.6-4.1 [facility] ([facility]) Neut # 4.2 x10*3/UL 2.0-7.8 [facility] ([facility]) ID Date Data Source [id number] 06/21/2020 12:00:00 AM EST [facility] Alyce Jacob Patient Name:VARSHA [id number] [facility] Date of : 1950 301 Date of Exam: 06/21/2020ALEX Howard [id number]#: Fax: [phone] EXAM: ULTRASOUND BREAST BILATERAL COMPLETECLINICAL INFORMATION: Dense breasts.Comparison is 05/17/2019.Whole breast screening ultrasonography was performed bilaterally usinganatomical intelligence and Shear wave elastography when necessary.There are no cystic or solid masses seen in either breast.IMPRESSION:Negative bilateral whole breast screening ultrasound exam. ACR Category 2.VARGHESE Caro/jmcThank you for referring VARSHA WOLF to our office. Electronically Signed - MATTHEW SCHWARTZ DO 06/22/20 16:00 Name Value Range Interpretation Code Description Data Yessica rce(s) Supporting Document(s) ID Date Data Source [id number] 05/29/2020 12:00:00 AM EST [facility] Alyce Jacob Patient Name:VARSHA [id number] [facility] Date of : 1950 89 Date of Exam:05/29/2020[facility] [address] [id number]#: [phone]: [phone] EXAM: MAMMO SCREENING WITH CADCLINICAL INFORMATION: [...] mammogram was read with the assistance of [employer], an FDAapproved computer aided detection system for [...] underlying neoplasm.VARGHESE Caro/Malu you for referring VARSHA WOLF to our office. Electronically Signed - MATTHEW SCHWARTZ DO 06/04/20 16:41 Name Value Range Interpretation Code Description Data Yessica rce(s) Supporting Document(s) ID Date Data Source [id number] 05/28/2020 10:38:00 AM EST [facility] ([facility]) Name Value Range Interpretation Code Description Data Yessica rce(s) Supporting Document(s) Magnesium 2.1 mg/dL 1.8-2.4 [facility] ([facility]) Thyrotropin [Units/volume] in Serum or Plasma by Detec tion limit <= 0.05 mIU/L 1.43 uIU/mL 0.36-3.74 [facility] ([facility] ) ID Date Data Source [id number] 05/28/2020 10:38:00 AM EST [facility] ([facility]) Name Value Range Interpretation Code Description Data Yessica rce(s) Supporting Document(s) Glucose [Mass/volume] in Serum or Plasma 74 mg/dL 74-99 [facility] ([facility]) 100-125 mg/dL PRE-DIABETES/FASTING >126 mg/dL DIABETES/FASTING Urea nitrogen [Mass/volume] in Serum or Plasma 20 mg/dL 7-18 [facility] ([facility]) Creatinine 0.7 mg/dL 0.6-1.3 [facility] ([facility]) Chloride [Moles/volume] in Serum or Plasma 103 meq/L 98-107 [facility] ([facility]) Sodium [Moles/volume] in Serum or Plasma 141 meq/L 136-145 [facility] ([facility]) Potassium [Moles/volume] in Serum or Plasma 4.5 meq/L 3.5-5.1 [facility] ([facility]) Calcium [Mass/volume] in Serum or Plasma 9.7 mg/dL 8.5-10.1 [facility] ([facility]) Carbon dioxide, total [Moles/volume] in Serum or Plasma 33 meq/L 21 -32 [facility] ([facility]) Glomerular filtration rate/1.73 sq M pre dicted among non-blacks [Volume Rate/Area] in Serum or Plasma by Creatinine-based formula (MDRD) Laboratory test result [facility] ([facility] Glomerular filtration rate/1.73 sq M pre dicted among blacks [Volume Rate/Area] in Serum or Plasma by Creatinine-based formula (MDRD) Laboratory test result [facility] ([facility]) <content>CHRONIC KIDNEY DISEASE STAGING PER NKF</content>
<content></content>
<content>STAGE I & II GFR >= 60 NORMAL TO MILDLY DECREASED</content>
<content>STAGE III GFR 30-59 MODERATELY DECREASED</content>
<content>STAGE IV GFR 15-29 SEVERELY DECREASED</content>
<content>STAGE V GFR <15 VERY LITTLE GFR LEFT</content>
<content>ESRD GFR <15 ON HUMAN RESOURCES ASSISTANT MANAGER</content>
<content></content> ID Date Data Source [id number] 04/04/2020 02:00:00 PM EDT [facility] ([facility]) Name Value Range Interpretation Code Description Data Yessica rce(s) Supporting Document(s) Coronavirus 2019 Nasopharygeal Laboratory test result [facility] ([facility]) This nucleic acid amplification test was developed and its performance characteristics determined by [facility]. Nucleic acid amplification tests include PCR and [...] detected) result in this assay. Performed at: [facility] [id number] Gas Meter Repairer: Pinky Dash MD, Phone: [phone] Not Detected ID Date Data Source [id number] 04/04/2020 02:00:00 PM EDT [facility] Name Value Range Interpretation Code Description Data Yessica rce(s) Supporting Document(s) SARS coronavirus 2 RNA [facility] This lab was ordered by [facility] and reported by [facility]. Procedure Social History Code Duration Value Status Description Data Source(s ) Smoking 02/06/2021 12:00:00 AM EDT Former Cigarette Smoker com pleted Former Cigarette Smoker [facility] ([facility] [place]) Smoking 12/24/2020 12:00:00 AM EDT Patient is a former smoker completed Patient is a former smoker [facility] ([facility], ) Vital Signs ID Date Data Source UNK Name Value Range Interpretation Code Description Data Source(s) Body mass index (BMI) [Ratio] 26.5 kg/m2 26.5 k g/m2 [facility] ([facility]) Systolic blood pressure 122 mm[Hg] 122 mm[Hg] M [facility] ([facility]) Diastolic blood pressure 68 mm[Hg] 68 mm[Hg] [facility] ([facility]) Heart rate 69 /min 69 /min [facility] ([facility]) Body height 55 [in_i] 55 [in_i] [facility] ([facility]) 4'7" Body weight 114.00 [lb_av] 114.00 [lb_av] [facility] ([facility]) Oxygen saturation in Arterial blood by Pulse oximetry 99 % 99 % [facility] ([facility]) Systolic blood pressure 122 mm[Hg] 122 [facility]] [facility] Diastolic blood pressure 70 mm[Hg] 70 mm[Hg] [facility] ([facility]) Heart rate 58 /min 58 /min [facility] ([facility]) Body height 55 [in_i] 55 [in_i] [facility] ([facility]) 4'7" Body weight 116.00 [lb_av] 116.00 [lb_av] [facility] ([facility]) Body mass index (BMI) [Ratio] 27.0 kg/m2 27.0 k g/m2 [facility] ([facility]) Body weight 53.525 kg 53.525 kg [facility] ([facility] [place] Body weight 118.00 [lb_av] 118.00 [lb_av] [facility] ([facility] [place]) Systolic blood pressure 149 mm[Hg] 149 mm[Hg] [facility] ([facility] [place]) Body mass index (BMI) [Ratio] 19.6 kg/m2 19.6 k g/m2 [facility] ([facility] [place]) Diastolic blood pressure 60 mm[Hg] 60 mm[Hg] [facility] ([facility] [place]) Body height 65 [in_i] 65 [in_i] [facility] [place] 5'5" Heart rate 59 /min 59 /min [facility] ([facility] [place] Systolic blood pressure 118 mm[Hg] 118 mm[Hg] [facility] Heart rate 68 /min 68 /min [facility] ([facility] ) Diastolic blood pressure 64 mm[Hg] 64 mm[Hg] [facility] ([facility]) Oxygen saturation in Arterial blood by Pulse oximetry 100 % 100 % [facility] ([facility]) Room Air Body height 65 [in_i] 65 [in_i] [facility] ([facility]) 5'5" Body surface area Derived from formula 1.58 m2 1.58 m2 [facility] ([facility]) Body weight 53.525 kg 53.525 kg [facility] ([facility]) Body weight 118.00 [lb_av] 118.00 [lb_av] [facility] ([facility]) Body mass index (BMI) [Ratio] 19.6 kg/m2 19.6 k g/m2 [facility] ([facility]) [place] body weight 125 [lb_av] 125 [lb_av] [facility] ([facility]) Body height 55 [in_i] 55 [in_i] [facility] ([facility]) 4'7" Systolic blood pressure 120 mm[Hg] 120 mm[Hg] [facility] ([facility]) Diastolic blood pressure 50 mm[Hg] 50 mm[Hg] [facility] ([facility]) Heart rate 58 /min 58 /min [facility] ([facility]) Body weight 117.25 [lb_av] 117.25 [lb_av] [facility] ([facility]) Oxygen saturation in Arterial blood by Pulse oximetry 98 % 98 % [facility] ([facility]) RM Air Body mass index (BMI) [Ratio] 27.2 kg/m2 27.2 k g/m2 [facility] ([facility]) Systolic blood pressure 110 mm[Hg] 110 mm[Hg] [facility] Body weight 52.164 kg 52.164 kg [facility] ([facility]) Body surface area Derived from formula 1.56 m2 1.56 m2 [facility] ([facility]) Diastolic blood pressure 70 mm[Hg] 70 mm[Hg] [facility] ([facility]) Heart rate 77 /min 77 /min [facility] ([facility]) Oxygen saturation in Arterial blood by Pulse oximetry 100 % 100 % [facility] ([facility]) Room Air Body height 65 [in_i] 65 [in_i] [facility] ([facility]) 5'5" Body weight 115.00 [lb_av] 115.00 [lb_av] [facility] Body mass index (BMI) [Ratio] 19.1 kg/m2 19.1 k g/m2 [facility] ([facility]) [place] body weight 125 [lb_av] 125 [lb_av] [facility] Body weight 116.00 [lb_av] 116.00 [lb_av] [facility] Oxygen saturation in Arterial blood by Pulse oximetry 99 % 99 % [facility] ([facility]) RM Air Body mass index (BMI) [Ratio] 27.0 kg/m2 27.0 k g/m2 [facility] ([facility]) Systolic blood pressure 138 mm[Hg] 138 mm[Hg] M [facility] ([facility]) Diastolic blood pressure 60 mm[Hg] 60 mm[Hg] [facility] ([facility]) Heart rate 63 /min 63 /min [facility] ([facility]) Body height 55 [in_i] 55 [in_i] [facility] ([facility]) 4'7"
--- NOTE | 2021-04-26 22:55 | REPVR ---
PROCEDURE INFORMATION: Exam: US Duplex Right Lower Extremity Veins, Limited Exam date and time: 04/26/2021 10:27 PM Age: 70 years old Clinical indication: Other: Tingling TECHNIQUE: Imaging protocol: Real-time Duplex ultrasound of the Right Lower Extremity with 2-D conteh scale, color Doppler flow and spectral waveform analysis with image documentation. Limited exam was focused on the right lower extremity veins. COMPARISON: No relevant prior studies available. FINDINGS: Right deep veins: Unremarkable. The common femoral, femoral, popliteal, posterior tibial and peroneal veins are patent without thrombus. Normal Doppler waveforms. Normal compressibility and/or augmentation response. Right superficial veins: Unremarkable. Saphenofemoral junction is patent without thrombus. Soft tissues: Unremarkable. IMPRESSION: No sonographic evidence of deep vein thrombosis. Electronically signed by: Derek Mauricio On 04/26/2021 22:54:30 PM
== END | disposition home or self-care (01) ==
LOC: M ED 13:13
DX: R20.2 Paresthesia of skin (principal); M79.604 Pain in right leg; E03.9 Hypothyroidism, unspecified; J45.909 Unspecified asthma, uncomplicated; Z83.2 Family history of diseases of the blood and blood-forming organs and certain disorders involving the immune mechanism; Z79.899 Other long term (current) drug therapy

== ENCOUNTER → 2021-05-07 | Outpatient (CLI) | payer MEDICARE, OTHER ==
[~2021-05-07] MED LIST changes: +ADVA115A; +LATANOPROST; +REST0.05; +SLOWTAB2; +SYNT75TA; +VENTAER
== END ==
LOC: M WUC 13:50
PROVIDERS: ATTEND Physician Assistant Medical
DX: R20.2 Paresthesia of skin (principal)

== ENCOUNTER → 2021-07-26 | Outpatient (CLI) | payer MEDICARE, OTHER | LOC: M WHC 14:31 | PROVIDERS: ATTEND Nurse Practitioner Adult Health | DX: R92.2 Inconclusive mammogram (principal); Z80.3 Family history of malignant neoplasm of breast ==

== ENCOUNTER 2021-07-29 11:24 | Emergency (ER) | payer MEDICARE, OTHER ==
[~2021-07-29] VITALS: Ht 165.1 cm; Wt 53.3 kg
[~2021-07-29 11:24] MED LIST changes: -ADVA115A; -LATANOPROST; -REST0.05; -SLOWTAB2; -SYNT75TA; -VENTAER
[2021-07-29] MEDS ORDERED: LATANOPROST (11:53)
[2021-07-29] MEDS ORDERED: ADVA115A (11:53)
[2021-07-29] MEDS ORDERED: SLOWTAB2 (11:53)
[2021-07-29] MEDS ORDERED: SYNT75TA (11:53)
[2021-07-29] MEDS ORDERED: VENTAER (11:53)
[2021-07-29] MEDS ORDERED: REST0.05 (11:53)
[2021-07-29] MEDS ORDERED: MIRALAX *UNIT DOSE* 17GM PACKET PO ONE (16:00)
[2021-07-29 17:41] VITALS: BP 160/70
== END 2021-07-29 17:40 | disposition home or self-care (01) ==
LOC: M ED 11:24
DX: K59.00 Constipation, unspecified (principal); F10.10 Alcohol abuse, uncomplicated; J45.909 Unspecified asthma, uncomplicated; Z79.51 Long term (current) use of inhaled steroids; Z79.899 Other long term (current) drug therapy

== ENCOUNTER → 2022-05-21 | Outpatient (CLI) | payer MEDICARE, OTHER ==
[~2022-05-21] MED LIST changes: +ADVA115A; +LATANOPROST; +REST0.05; +SLOWTAB2; +SYNT75TA; +VENTAER
== END ==
LOC: M WUC 11:26
PROVIDERS: ATTEND Nurse Practitioner Adult Health
DX: R63.4 Abnormal weight loss (principal); Z87.891 Personal history of nicotine dependence

== ENCOUNTER → 2022-07-04 | Outpatient (CLI) | payer MEDICARE, OTHER | LOC: M PLAIMG 11:04 | PROVIDERS: ATTEND Internal Medicine Pulmonary Disease | DX: R91.1 Solitary pulmonary nodule (principal); J44.9 Chronic obstructive pulmonary disease, unspecified ==

== ENCOUNTER → 2022-07-28 | Outpatient (CLI) | payer MEDICARE, OTHER | LOC: M WHC 10:15 | PROVIDERS: ATTEND Nurse Practitioner Adult Health | DX: Z12.31 Encounter for screening mammogram for malignant neoplasm of breast (principal) ==

== ENCOUNTER → 2022-12-02 | Outpatient (CLI) | payer MEDICARE, OTHER | LOC: M RAD 08:40 | PROVIDERS: ATTEND Nurse Practitioner Adult Health | DX: I71.40 Abdominal aortic aneurysm, without rupture, unspecified (principal); R10.9 Unspecified abdominal pain ==

== ENCOUNTER → 2023-02-05 | Outpatient (CLI) | payer MEDICARE, OTHER | LOC: M RAD 14:10 | PROVIDERS: ATTEND Internal Medicine Pulmonary Disease | DX: R91.8 Other nonspecific abnormal finding of lung field (principal) ==

== ENCOUNTER → 2023-02-23 | Outpatient (CLI) | payer MEDICARE, OTHER | LOC: M PLARAD 11:00 | PROVIDERS: ATTEND Internal Medicine Pulmonary Disease | DX: R91.8 Other nonspecific abnormal finding of lung field (principal) | CPT/HCPCS: 78815; A9552 ==

== ENCOUNTER → 2023-06-05 | Outpatient (CLI) | payer MEDICARE, OTHER | LOC: M RAD 08:56 | PROVIDERS: ATTEND Internal Medicine Pulmonary Disease | DX: R91.1 Solitary pulmonary nodule (principal) ==

== ENCOUNTER → 2023-07-29 | Outpatient (CLI) | payer MEDICARE, OTHER ==
[~2023-07-29] MED LIST changes: +ADVA115A INH; +ATOR1TAB19 PO; +BENZ200C70 PO; +CALC600T60 PO; +COLA100C5 PO; +MELA3TAB49 PO; +MYRB50TA PO; +OMEG10002 PO; +PROBCAP14 PO; +REST0.05 OU; +SLOWTAB2 PO; +SYNT75TA PO; +TOBRSUS39 OP; +VENTAER INH; +XALA0.007 OU
== END ==
LOC: M WHC 10:56
PROVIDERS: ATTEND Nurse Practitioner Adult Health
DX: Z12.31 Encounter for screening mammogram for malignant neoplasm of breast (principal)

== ENCOUNTER → 2023-11-16 | Outpatient (REF) | payer MEDICARE, OTHER | LOC: M LAB REF 12:43 | PROVIDERS: ATTEND Nurse Practitioner Adult Health | DX: R50.9 Fever, unspecified (principal) ==

== ENCOUNTER → 2024-04-19 | Outpatient (CLI) | payer MEDICARE, OTHER ==
[2024-04-19 17:02] LABS: RSV AMPLIFICATION NEGATIVE (NEGATIVE)
== END ==
LOC: M WUC 13:47
PROVIDERS: ATTEND Nurse Practitioner Adult Health
DX: R05.9 Cough, unspecified (principal)

== ENCOUNTER → 2024-06-23 | Outpatient (CLI) | payer MEDICARE, OTHER ==
[2024-06-23 14:43] LABS: BLOOD UREA NITROGEN 18 MG/DL (9-23); CALCIUM LEVEL 9.3 MG/DL (8.3-10.6); CARBON DIOXIDE LEVEL 31 MMOL/L (20-31); CHLORIDE LEVEL 100 MMOL/L (98-107); CREATININE FOR GFR 0.56 MG/DL (0.55-1.30); GLOMERULAR FILTRATION RATE > 60.0 (>39); GLUCOSE, FASTING 143 MG/DL (74-106); POTASSIUM SERUM 4.8 MMOL/L (3.5-5.1); SODIUM LEVEL 138 MMOL/L (136-145)
== END ==
LOC: M PLALAB 11:25
PROVIDERS: ATTEND Otolaryngology
DX: H93.A2 Pulsatile tinnitus, left ear (principal)

== ENCOUNTER → 2024-06-30 | Outpatient (CLI) | payer MEDICARE, OTHER ==
[~2024-06-30] MED LIST changes: +ISOVUE-370 76% 100ML VIAL As Ordered ONE
== END ==
LOC: M RAD 09:20
PROVIDERS: ATTEND Otolaryngology
DX: H93.A2 Pulsatile tinnitus, left ear (principal)
CPT/HCPCS: 70482; Q9967

== ENCOUNTER → 2024-08-02 | Outpatient (CLI) | payer MEDICARE, OTHER ==
[~2024-08-02] MED LIST changes: -ISOVUE-370 76% 100ML VIAL As Ordered ONE
== END ==
LOC: M WHC 10:28
PROVIDERS: ATTEND Nurse Practitioner Adult Health
DX: Z12.31 Encounter for screening mammogram for malignant neoplasm of breast (principal); M85.89 Other specified disorders of bone density and structure, multiple sites; R92.333 Mammographic heterogeneous density, bilateral breasts